=== PATIENT | female | born 1970 | race African-American/Black ===

== ENCOUNTER 2017-01-06 16:56 | Emergency (ER) | payer SELFPAY ==
[2017-01-06 17:27] VITALS: BP 180/120
[2017-01-06] MEDS ORDERED: BUTALB/ACETAMINOPHEN/CAFFEINE 1 TAB EACH PO ONE (18:04)
--- NOTE | 2017-01-06 18:06 | ER Document Report ---
ED Headache - General Chief Complaint: Headache >24 hrs old Stated Complaint: POSSIBLE MIGRAINE Notes: The patient is a 46-year-old female, past medical history hypertension, frequent headaches, CVA several years ago, presents with her usual right-sided dull headache with right eye pain. She does not take anything at home and usually the headaches resolve on their own. Today, the headache has not resolved. She denies head injury, numbness, tingling, nausea, vomiting, ear pain, fevers, neck stiffness or weakness. TRAVEL OUTSIDE OF THE [place] IN LAST 30 DAYS: No - Related Data Allergies/Adverse Reactions: lisinopril Allergy (Verified 01/06/17 17:20) Past Medical History - General Information source: Patient - Social History Smoking Status: Never Smoker Family History: Reviewed & Not Pertinent - Past Medical History Cardiac Medical History: Reports: Hx Hypertension Neurological Medical History: Reports: Hx Cerebrovascular Accident - 2012 Renal/ Medical History: Denies: Hx Peritoneal Dialysis Musculoskeltal Medical History: Reports Hx Arthritis, Reports Hx Fibromyalgia Psychiatric Medical History: Reports: Hx Anxiety, Hx Depression - Immunizations Immunizations up to date: No Hx Diphtheria, Pertussis, Tetanus Vaccination: No Review of Systems - Review of Systems Notes: REVIEW OF SYSTEMS: CONSTITUTIONAL: -fevers, -chills EENT: +right eye pain, -difficulty swallowing, -nasal congestion CARDIOVASCULAR:-chest pain, -syncope. RESPIRATORY: -cough, -SOB GASTROINTESTINAL: -abdominal pain, - nausea, -vomiting, -diarrhea GENITOURINARY: -dysuria, -hematuria MUSCULOSKELETAL: -back pain, -neck pain SKIN: -rash or skin lesions. HEMATOLOGIC: -easy bruising or bleeding. LYMPHATIC: -swollen, enlarged glands. NEUROLOGICAL: -altered mental status or loss of consciousness, +headache, - neurologic symptoms PSYCHIATRIC: -anxiety, -depression. ALL OTHER SYSTEMS REVIEWED AND NEGATIVE. Physical Exam - Vital signs Vitals: Temp Pulse Resp BP Pulse Ox 99.5 F 86 16 181/113 H 100 01/06/17 17:22 01/06/17 17:22 01/06/17 17:22 01/06/17 17:22 01/06/17 17:22 - Notes Notes: PHYSICAL EXAMINATION: GENERAL: Well-appearing, well-nourished and in no acute distress. HEAD: Atraumatic, normocephalic. EYES: Pupils equal round and reactive to light, extraocular movements intact, sclera anicteric, conjunctiva are normal. ENT: nares patent, oropharynx clear without exudates. Moist mucous membranes. NECK: Normal range of motion, supple without lymphadenopathy LUNGS: Breath sounds clear to auscultation bilaterally and equal. No wheezes rales or rhonchi. HEART: Regular rate and rhythm without murmurs ABDOMEN: Soft, nontender, normoactive bowel sounds. No guarding, no rebound. No masses appreciated. EXTREMITIES: Normal range of motion, no pitting or edema. No cyanosis. NEUROLOGICAL: Cranial nerves grossly intact. Normal speech, normal gait. Normal sensory, motor, and reflex exams. PSYCH: Normal mood, normal affect. SKIN: Warm, Dry, normal turgor, no rashes or lesions noted. Course - Re-evaluation Re-evalutation: Patient's headache is exactly the same as her prior ones. She has an appointment with her primary care physician in 2 weeks to be started on blood pressure medications and headache medications. After Fioricet, patient's headache has completely resolved. Given strict return precautions and she understands. - Vital Signs Vital signs: Temp Pulse Resp BP Pulse Ox 99.5 F 86 16 180/120 H 100 01/06/17 17:22 01/06/17 17:22 01/06/17 17:22 01/06/17 17:27 01/06/17 17:22 Discharge - Discharge Clinical Impression: Chronic headache Qualifiers: Headache type: unspecified Intractability: not intractable Qualified Code(s): R51 - Headache Hypertension Qualifiers: Hypertension type: unspecified secondary hypertension Qualified Code(s): I15.9 - Secondary hypertension, unspecified; I15 - Secondary hypertension Condition: Good Disposition: HOME, SELF-CARE Additional Instructions: HEADACHE: The physician does not feel that the headache you are experiencing has a serious underlying cause. Most headaches are due to emotional stress, with resultant muscle tension (tension headache). Occasionally, headaches are secondary to changes in the blood vessels of the scalp (vascular headache and migraine headache). Sometimes, a headache is the first symptom of another developing illness, such as a viral infection. You have no evidence of stroke, bleeding, meningitis, or other serious cause of your headache. The treatment of headaches varies with the severity and cause of the pain. Not all headaches need pain shots. In fact, there is evidence that using narcotics for headaches may make them worse in the long run. The physician will determine the therapy that's in your best interest. If you develop a fever, if the headache is different from any you've previously experienced, or if the headache progressively worsens, then call your physician at once or go to the emergency room. ORAL NARCOTIC MEDICATION: You have been given Fioricet for pain control. This medication is a narcotic. It's best taken with food, as nausea can result if taken on an empty stomach. Don't operate machinery or drive within six hours of taking this medication. Do not combine this medicine with alcohol, or with any medication which can cause sedation (such as cold tablets or sleeping pills) unless you get permission from the physician. Narcotics tend to cause constipation. If possible, drink plenty of fluids and eat a diet high in fiber and fruits. Please be aware that prescription narcotics also have the potential for abuse. People become addicted to these medications because of the general sense of wellbeing that they induce. This feeling along with a significant reduction in tension, anxiety, and aggression provides a stimulating seductive quality to these drugs. Once your pain is under control, we encourage you to discard your unused narcotics. FOLLOW-UP CARE: If you have been referred to a physician for follow-up care, call the physician s office for an appointment as you were instructed or within the next two days. If you experience worsening or a significant change in your symptoms, notify the physician immediately or return to the Emergency Department at any time for re-evaluation. HIGH BLOOD PRESSURE, NOT TREAT: When your blood pressure was taken today it was elevated. Today's reading was 181/120. We do not think you need to have your blood pressure treated today. Sometimes, stress or illness causes a temporary elevation of your blood pressure. We suggest that you get your blood pressure measured again during the next few days to see if this elevated blood pressure is more than a temporary abnormality. If your blood pressure is greater than 150/90 on each occasion, you must have treatment. Some simple things you can do to help are: If you have blood pressure medicine but aren't using it regularly, start taking it again. Get some aerobic exercise for at least 20 minutes on a daily basis. (See your doctor before beginning a new exercise program.) Eat a low-fat diet. Lose excess weight. Avoid salty foods and avoid adding salt to any of the foods you eat. Avoid diet pills, decongestants, "energizing" herbs, and other medicines that elevate blood pressure. If left untreated, hypertension greatly enhances your risk for developing heart disease and strokes. Please don't ignore this problem. FOLLOW-UP CARE: If you have been referred to a physician for follow-up care, call the physician s office for an appointment as you were instructed or within the next two days. If you experience worsening or a significant change in your symptoms, notify the physician immediately or return to the Emergency Department at any time for re-evaluation.
== END 2017-01-06 19:29 | disposition home or self-care (01) ==
LOC: ER 16:56
DX: R51 Headache (principal); I10 Essential (primary) hypertension; H57.11 Ocular pain, right eye; Z86.73 Personal history of transient ischemic attack (TIA), and cerebral infarction without residual deficits
CPT/HCPCS: 99283; J3490

== ENCOUNTER 2017-01-07 12:49 | Emergency (ER) | payer SELFPAY ==
[2017-01-07] MEDS ORDERED: TRAMADOL HCL 50 MG TABLET PO ONE (13:31)
[2017-01-07] MEDS ORDERED: TETRACAINE HCL 0.5% OPH SOLN 2 ML OD ONE (13:53)
--- NOTE | 2017-01-07 14:20 | ER Document Report ---
ED General - General Chief Complaint: Eye Injury Stated Complaint: LEFT EYE INJURY Mode of Arrival: Ambulatory Information source: Patient Notes: Patient is a 46 year old female with PMHX significant for HTN who presents with left eye redness and pain that started this morning after she was pulling her phone charge out of the wall and hit her in the eye. She states she has some associated intermittent blurred vision that resolves with blinking, excessive tearing, and associated headache but denies any dizziness, vision changes, FB sensation, drainage. She has not taken any medication for this. She does not wear contacts or glasses, she does not have an eye doctor. TRAVEL OUTSIDE OF THE [place] IN LAST 30 DAYS: No - Related Data Allergies/Adverse Reactions: lisinopril Allergy (Verified 01/06/17 17:20) Past Medical History - Social History Smoking Status: Never Smoker Chew tobacco use (# tins/day): No Frequency of alcohol use: None Drug Abuse: None Family History: Reviewed & Not Pertinent - Past Medical History Cardiac Medical History: Reports: Hx Hypertension Neurological Medical History: Reports: Hx Cerebrovascular Accident - 2012 Renal/ Medical History: Denies: Hx Peritoneal Dialysis Musculoskeltal Medical History: Reports Hx Arthritis, Reports Hx Fibromyalgia Psychiatric Medical History: Reports: Hx Anxiety, Hx Depression Surgical Hx: Negative - Immunizations Immunizations up to date: No Hx Diphtheria, Pertussis, Tetanus Vaccination: No Review of Systems - Review of Systems Constitutional: See HPI EENT: See HPI Cardiovascular: No symptoms reported Respiratory: No symptoms reported Gastrointestinal: No symptoms reported Genitourinary: No symptoms reported Female Genitourinary: No symptoms reported Musculoskeletal: No symptoms reported Skin: No symptoms reported Hematologic/Lymphatic: No symptoms reported Neurological/Psychological: No symptoms reported Physical Exam - Vital signs Vitals: Temp Pulse Resp BP Pulse Ox 98.2 F 87 16 153/113 H 100 01/07/17 12:51 01/07/17 12:51 01/07/17 12:51 01/07/17 12:51 01/07/17 12:51 Interpretation: Hypertensive - Notes Notes: PHYSICAL EXAM: CONSTITUTIONAL: Alert and oriented, well-appearing and in no acute distress. HENT: Normocephalic, atraumatic. Trachea midline. Uvula midline. Moist mucous membranes. EYES: Pupils equal round and reactive to light, EOM intact. R eye - Sclera anicteric, conjunctiva are normal. No entrapment. L eye - erythematous conjunctiva with evidence of FB or trauma. Fluorescein exam revealed no uptake of dye, no evidence of corneal abrasion or rust ring. NECK: supple without lymphadenopathy. ROM intact. HEART: Regular rate and rhythm without murmurs. LUNGS: CTAB and equal. No wheezes, rales or rhonchi. NEURO: Cranial nerves grossly intact. Normal sensory/motor exams. SKIN: Warm and dry. Normal turgor. No rashes or lesions noted. Course - Re-evaluation Re-evalutation: 01/07/17 14:18 Patient seen and examined. Visual acuity 20/40 L eye, 20/50 R eye, 20/40 both eyes. Right eye reveals conjunctival erythema without foreign body. Fluorescein exam revealed no FB or corneal abrasion. Will treat empirically with opthalmic abx solution. Advised to follow-up with eye doctor, return if symptoms worsen. Given PO pain medication here. At this time, will discharge with return precautions and follow-up recommendations. Verbal discharge instructions given at the bedside and opportunity for questions given. Medication warnings reviewed. Patient is in agreement with this plan and has verbalized understanding of return precautions and the need for primary care follow-up in the next 24-72 hours. 01/07/17 14:21 Repeat blood pressure 167/116 - discussed with patient who states she just saw her primary care physician for HTN yesterday and was told to increase metoprolol dosing which she is starting today. - Vital Signs Vital signs: Temp Pulse Resp BP Pulse Ox 98.2 F 87 16 153/113 H 100 01/07/17 12:51 01/07/17 12:51 01/07/17 12:51 01/07/17 12:51 01/07/17 12:51 Discharge - Discharge Clinical Impression: Conjunctival abrasion Qualifiers: Encounter type: initial encounter Laterality: left Qualified Code(s): S05.02XA - Injury of conjunctiva and corneal abrasion without foreign body, left eye, initial encounter Hypertension Qualifiers: Hypertension type: unspecified secondary hypertension Qualified Code(s): I15.9 - Secondary hypertension, unspecified Condition: Stable Disposition: HOME, SELF-CARE Additional Instructions: Follow-up with an eye doctor as needed. Contact information as been provided. You have been prescribed eye drop antibiotics. Place 1-2 drops in affected eye every 6 hours while awake for 5 days. Be sure to take your blood pressure medication as prescribed. Return immediately for any new or worsening symptoms. Follow-up with primary care provider, call tomorrow to make followup appointment. Prescriptions: Tramadol HCl [Ultram] 50 mg PO Q8HP PRN #10 tablet PRN Reason: Gentamicin Sulfate [Garamycin 0.3% Oph Soln 5 ml] 1 drop OS Q6H 5 Days Forms: Elevated Blood Pressure
[2017-01-07 14:22] VITALS: BP 167/116
== END 2017-01-07 14:30 | disposition home or self-care (01) ==
LOC: ER 12:49
DX: S05.02XA Injury of conjunctiva and corneal abrasion without foreign body, left eye, initial encounter (principal); W22.8XXA Striking against or struck by other objects, initial encounter; Y92.009 Unspecified place in unspecified non-institutional (private) residence as the place of occurrence of the external cause; I10 Essential (primary) hypertension; Z86.73 Personal history of transient ischemic attack (TIA), and cerebral infarction without residual deficits
CPT/HCPCS: 99283

== ENCOUNTER 2017-02-21 22:55 | Emergency (ER) | payer SELFPAY ==
[2017-02-22 00:22] LABS: ANION GAP 12 (5-19); BLOOD UREA NITROGEN 9 mg/dL (7-20); CALCIUM 9.4 mg/dL (8.4-10.2); CARBON DIOXIDE 27 mmol/L (22-30); CHLORIDE 103 mmol/L (98-107); GLUCOSE 81 mg/dL (75-110); POTASSIUM 3.5 mmol/L (3.6-5.0); SODIUM 141.5 mmol/L (137-145)
[2017-02-22] MEDS ORDERED: KETOROLAC TROMETHAMINE INJ/PF 30 MG/1 ML SDV IV ONE (00:59)
[2017-02-22] MEDS ORDERED: LIDOCAINE 5% (700 MG) TRANSDERMAL ADH..PATCH TP ONE (00:59)
--- NOTE | 2017-02-22 01:00 | ER Document Report ---
ED General - General Chief Complaint: Chest Pain Stated Complaint: CHEST PAIN Time Seen by Provider: 02/21/17 23:49 Notes: Patient is a 46-year-old female with a prior history of a CVA, hypertension who presents with 12 hours of left-sided chest pain. States the pain as a sharp, constant, stabbing pain. It is worsened by movement of the chest wall or left upper extremity. She has not tried anything to improve the symptoms. States she has had similar symptoms in the past related to musculoskeletal irritation of the chest wall. She denies any cardiac history, history of DVT or pulmonary embolus. She does not use estrogen. No history of aortic pathology or connective tissue disorders. She has not seen a primary care doctor regarding today's concerns. TRAVEL OUTSIDE OF THE [place] IN LAST 30 DAYS: No - Related Data Allergies/Adverse Reactions: lisinopril Allergy (Verified 01/06/17 17:20) Past Medical History - General Information source: Patient - Social History Smoking Status: Never Smoker Frequency of alcohol use: None Drug Abuse: None Lives with: Spouse/Significant other Family History: Reviewed & Not Pertinent - Past Medical History Cardiac Medical History: Reports: Hx Hypertension Neurological Medical History: Reports: Hx Cerebrovascular Accident - 2012 Renal/ Medical History: Denies: Hx Peritoneal Dialysis Musculoskeltal Medical History: Reports Hx Arthritis, Reports Hx Fibromyalgia Psychiatric Medical History: Reports: Hx Anxiety, Hx Depression - Immunizations Immunizations up to date: No Hx Diphtheria, Pertussis, Tetanus Vaccination: No Review of Systems - Review of Systems Notes: Constitutional: Negative for fever. HENT: Negative for sore throat. Eyes: Negative for visual changes. Cardiovascular: Positive for chest pain. Respiratory: Negative for shortness of breath. Gastrointestinal: Negative for abdominal pain, vomiting or diarrhea. Genitourinary: Negative for dysuria. Musculoskeletal: Negative for back pain. Skin: Negative for rash. Neurological: Negative for headaches, weakness or numbness. 10 point ROS negative except as marked above and in HPI. Physical Exam - Vital signs Vitals: Temp Pulse Resp BP Pulse Ox 98.0 F 93 16 173/126 H 100 02/21/17 23:09 02/21/17 23:09 02/21/17 23:09 02/21/17 23:09 02/21/17 23:09 Interpretation: Hypertensive Notes: PHYSICAL EXAMINATION: GENERAL: Well-appearing, well-nourished and in no acute distress. HEAD: Atraumatic, normocephalic. EYES: Pupils equal round and reactive to light, extraocular movements intact, sclera anicteric, conjunctiva are normal. ENT: nares patent, oropharynx clear without exudates. Moist mucous membranes. NECK: Normal range of motion, supple without lymphadenopathy LUNGS: Breath sounds clear to auscultation bilaterally and equal. No wheezes rales or rhonchi. HEART: Regular rate and rhythm without murmurs Chest wall: Pain on palpation of the left anterior and lateral chest wall ABDOMEN: Soft, nontender, normoactive bowel sounds. No guarding, no rebound. No masses appreciated. EXTREMITIES: Normal range of motion, no pitting or edema. No cyanosis. NEUROLOGICAL: No focal neurological deficits. Moves all extremities spontaneously and on command. PSYCH: Normal mood, normal affect. SKIN: Warm, Dry, normal turgor, no rashes or lesions noted. Course - Re-evaluation Re-evalutation: 02/22/17 00:57 Presentation of chest pain in an otherwise well appearing patient. Low clinical suspicion for ACS given clinical history, exam, EKG without ST elevations or depressions, and negative initial troponin. HEART score less than or equal to 3. PE also seems unlikely given clinical history, absence of tachycardia or dyspnea. Patient is PERC criteria negative. CXR without evidence of pneumothorax or pneumonia. No widened mediastinum. Aortic dissection also seems unlikely given history, symmetric pulses, CXR, and vitals. No indication for serial troponins given the patient's exam and history appear very clinically consistent with musculoskeletal chest pain, highly reproducible on exam and has been present for greater than 12 hours at time of initial assessment. HEART Score: History:0 EC Age:0 Risk Factors:2 Troponin:0 Total: 2 Overall assessment: Chest pain in a patient without evidence of cardiac or other serious etiology on workup today. I discussed with patient that, based on their age, risk factors and emergency department testing today, the likelihood that their symptoms are related to a heart attack is very low (estimated risk of heart attack or over the next 30 days of less than 1%). The patient demonstrates decision making capacity and has verbalized an understanding of these risks to me. Based on this, the patient has chosen to follow-up as an outpatient. Usual chest pain return precautions reviewed. The patient states understanding and agreement with this plan. - Vital Signs Vital signs: Temp Pulse Resp BP Pulse Ox 98.6 F 82 18 124/80 98 02/22/17 02:11 02/22/17 02:11 02/22/17 02:11 02/22/17 02:11 02/22/17 02:11 - Laboratory Result Diagrams: 02/22/17 00:00 Laboratory results interpreted by me: 02/22/17 00:00 Potassium 3.5 L - Diagnostic Test Radiology reviewed: Image reviewed, Reports reviewed Radiology results interpreted by me: 02/22/17 00:58 Chest x-ray: No acute infiltrate or pneumothorax - EKG Interpretation by Me Additional EKG results interpreted by me: 02/22/17 00:58 Normal sinus rhythm. Rate 95. No ST elevations or depressions. QTC is 448. Discharge - Discharge Clinical Impression: Chest pain Qualifiers: Chest pain type: intercostal pain Qualified Code(s): R07.82 - Intercostal pain Condition: Good Disposition: HOME, SELF-CARE Additional Instructions: You were seen today for chest pain. The exact cause of your pain is unclear. However, based on your cardiac enzyme testing, chest x-ray, and EKG it does not appear that it is from an immediately life-threatening cause at this time. Although your testing here is normal is critical that you follow-up with your primary care physician for continued evaluation of this chest pain. For your pain: Take ibuprofen 600 mg every 6 hours as needed for discomfort. You can also apply topical lidocaine which can be purchased [id number] to the affected area. You can also apply heat pack to the area. Please return to emergency department immediately if you have worsening of your chest pain, shortness of breath, vomiting, become unable to exert yourself due to pain or difficulty breathing, you pass out, or have any pain that radiates into your arms, jaw, or back. Please also return if you have any additional symptoms that are concerning to you. Forms: Return to Work
--- NOTE | 2017-02-22 01:23 | RADIOLOGY REPORT (SQ) ---
EXAM DESCRIPTION: CHEST SINGLE VIEW COMPLETED DATE/TIME: 02/22/2017 1:04 am REASON FOR STUDY: chest pain COMPARISON: 04/24/2016. EXAM PARAMETERS: NUMBER OF VIEWS: One view. TECHNIQUE: Single frontal radiographic view of the chest acquired. RADIATION DOSE: NA LIMITATIONS: None. FINDINGS: LUNGS AND PLEURA: No opacities, masses or pneumothorax. Minimal blunting of bilateral cos tophrenic angles. Azygos lobe. MEDIASTINUM AND HILAR STRUCTURES: No masses. Contour normal. HEART AND VASCULAR STRUCTURES: Heart normal in size. Normal vasculature. BONES: No acute findings. HARDWARE: None in the chest. OTHER: No other significant finding. IMPRESSION: NO ACUTE RADIOGRAPHIC FINDING IN THE CHEST. TECHNICAL DOCUMENTATION: JOB ID: [id number]
[2017-02-22 02:12] VITALS: BP 124/80
--- NOTE | 2017-02-22 21:08 | EKG REPORT ---
SEVERITY:- BORDERLINE ECG - SINUS RHYTHM LVH BY VOLTAGE : Confirmed by: Ximena Pepe 22-Feb-2017 21:08:21
== END 2017-02-22 02:14 | disposition home or self-care (01) ==
LOC: ER 22:55
DX: R07.82 Intercostal pain (principal); R07.9 Chest pain, unspecified; I10 Essential (primary) hypertension
CPT/HCPCS: 93005; 99285; 36415; 80048; 84484; 71010; 93010; J1885

== ENCOUNTER 2017-05-13 20:03 | Emergency (ER) | payer SELFPAY ==
[2017-05-13 23:49] LABS: ABSOLUTE BASOPHILS # (AUTO) 0.1 10^3/uL (0.0-0.2); ABSOLUTE EOSINOPHILS # (AUTO) 0.4 10^3/uL (0.0-0.6); ABSOLUTE MONOCYTES (AUTO) 0.5 10^3/uL (0.1-1.4); ABSOLUTE NEUT (AUTO) 5.6 10^3/uL (1.7-8.2); BASOPHILS % (AUTO) 0.9 % (0-2); EOSINOPHILS % (AUTO) 4.1 % (0-6); HEMATOCRIT 38.2 % (36.0-47.0); HEMOGLOBIN 12.6 g/dL (12.0-15.5); HGB HCT DIFFERENCE -0.4; LYMPHOCYTES % (AUTO) 23.7 % (13-45); MEAN CORPUSCULAR HEMOGLOBIN 29.7 pg (27.0-33.4); MEAN CORPUSCULAR HGB CONC 32.9 g/dL (32.0-36.0); MEAN CORPUSCULAR VOLUME 90 fl (80-97); MONOCYTES % (AUTO) 5.6 % (3-13); RED BLOOD COUNT 4.23 10^6/uL (3.72-5.28); RED CELL DISTRIBUTION WIDTH 13.8 % (11.5-14.0); SEGMENTED NEUTROPHILS % (AUTO) 65.7 % (42-78); WHITE BLOOD COUNT 8.6 10^3/uL (4.0-10.5)
[2017-05-13 23:58] LABS: ANION GAP 14 (5-19); BLOOD UREA NITROGEN 13 mg/dL (7-20); CALCIUM 10.3 mg/dL (8.4-10.2); CARBON DIOXIDE 23 mmol/L (22-30); CHLORIDE 104 mmol/L (98-107); CREATININE RESULT 0.99 mg/dL (0.52-1.25); GLUCOSE 95 mg/dL (75-110); POTASSIUM 4.2 mmol/L (3.6-5.0); SODIUM 140.9 mmol/L (137-145)
[2017-05-14] MEDS ORDERED: LIDOCAINE 5% OINTMENT 35.44 GM TP ONE (02:11)
--- NOTE | 2017-05-14 02:25 | ER Document Report ---
ED General - General Chief Complaint: Rectal Bleeding Stated Complaint: POSSIBLE HEMORRHOIDS Time Seen by Provider: 05/14/17 01:16 Mode of Arrival: Ambulatory Information source: Patient Notes: The patient is a 46-year-old female with a history of hypertension, panic attacks, fibromyalgia and a remote history of hemorrhoids who presents to the emergency room with symptomatic hemorrhoid. Medications: None (patient states she cannot afford them). Allergies: Lisinopril Primary CARE: None TRAVEL OUTSIDE OF THE [place] IN LAST 30 DAYS: No - HPI Onset: Last week Onset/Duration: Gradual Quality of pain: Dull Severity: Moderate Pain Level: 2 Associated symptoms: denies: Chest pain, Fever, Shortness of breath Exacerbated by: Denies Relieved by: Denies Similar symptoms previously: No Recently seen / treated by doctor: No - Related Data Allergies/Adverse Reactions: lisinopril Allergy (Verified 01/06/17 17:20) Past Medical History - General Information source: Patient - Social History Smoking Status: Never Smoker Cigarette use (# per day): No Chew tobacco use (# tins/day): No Frequency of alcohol use: None Drug Abuse: None Lives with: Family Family History: Reviewed & Not Pertinent Patient has suicidal ideation: No Patient has homicidal ideation: No - Past Medical History Cardiac Medical History: Reports: Hx Hypertension Neurological Medical History: Reports: Hx Cerebrovascular Accident - 2012 Renal/ Medical History: Denies: Hx Peritoneal Dialysis Musculoskeltal Medical History: Reports Hx Arthritis, Reports Hx Fibromyalgia Psychiatric Medical History: Reports: Hx Anxiety, Hx Depression - Immunizations Immunizations up to date: No Hx Diphtheria, Pertussis, Tetanus Vaccination: No Review of Systems - Review of Systems Constitutional: denies: Chills, Fever EENT: No symptoms reported Cardiovascular: No symptoms reported Respiratory: No symptoms reported - What he did have Gastrointestinal: See HPI Genitourinary: No symptoms reported Female Genitourinary: No symptoms reported Musculoskeletal: No symptoms reported Skin: No symptoms reported Hematologic/Lymphatic: No symptoms reported Neurological/Psychological: No symptoms reported Physical Exam - Vital signs Vitals: Temp Pulse Resp BP Pulse Ox 99 F 99 16 176/133 H 100 05/13/17 20:52 05/13/17 20:52 05/13/17 20:52 05/13/17 20:52 05/13/17 20:52 Notes: Physical exam: GENERAL: 46-year-old female, alert and oriented 3, no acute distress HEAD: Atraumatic, normocephalic. EYES: Pupils equal round and reactive to light, extraocular movements intact, sclera anicteric, conjunctiva are normal. ENT: TMs normal, nares patent, oropharynx clear without exudates. Moist mucous membranes. NECK: Normal range of motion, supple without lymphadenopathy LUNGS: Breath sounds clear to auscultation bilaterally and equal. No wheezes rales or rhonchi. HEART: Regular rate and rhythm without murmurs, rubs or gallops. ABDOMEN: Soft, normoactive bowel sounds. No tenderness to palpation. No guarding, no rebound. No masses appreciated. Rectal: Performed in the presence of contact lens manufacturer. Patient does have a tender hemorrhoid. There is no obvious bleeding. Rectal exam shows no obvious masses. EXTREMITIES: Normal range of motion, no pitting or edema. No clubbing or cyanosis. NEUROLOGICAL: Cranial nerves II through XII grossly intact. Normal speech, normal gait. PSYCH: Normal mood, normal affect. SKIN: Warm, Dry, normal turgor, no rashes or lesions noted. Course - Re-evaluation Re-evalutation: 05/14/17 02:21 I have given the patient the options: I have advised her to use hemorrhoid cream , viscous lidocaine and I will give her pain medicines. I have offered to incise the hemorrhoid to relieve the pressure (it looks like it will be thrombosed shortly). The patient prefers not to have an incision at this time. She has been through this before. She wishes to wait and will come back if it gets worse. In the meantime, I will give her the number for the surgical clinic. - Vital Signs Vital signs: Temp Pulse Resp BP Pulse Ox 99 F 88 18 185/117 H 100 05/13/17 20:52 05/14/17 01:42 05/14/17 01:42 05/14/17 01:42 05/14/17 01:42 - Laboratory Result Diagrams: 05/13/17 23:28 05/13/17 23:28 Laboratory results interpreted by me: 05/13/17 23:28 Calcium 10.3 H Discharge - Discharge Clinical Impression: Hemorrhoids Condition: Stable Disposition: HOME, SELF-CARE Instructions: Hemorrhoids ([facility]) Additional Instructions: Recommendations: Apply viscous lidocaine to the hemorrhoid 15 minutes before bowel movement. Take the stool softeners as prescribed. Take the pain medicine as needed. Sitz baths. Continue with the hemorrhoid cream. Call Dr. Coles in the surgical clinic: Tell them you are seen in the ER and will referred for evaluation of the hemorrhoids. Let them know you do not have insurance. You can always return to the emergency room if the hemorrhoids get worse. Prescriptions: Docusate Sodium [Colace 100 mg Capsule] 100 mg PO DAILY #30 capsule Oxycodone HCl/Acetaminophen [Percocet 5-325 mg Tablet] 1 - 2 tab PO ASDIR PRN # 25 tablet PRN Reason: Referrals: JUS COLES MD [ACTIVE STAFF] - Follow up as needed (This is the number for the surgical clinic: Tell them he was seen in the emergency room and the wanted to seen in the clinic for hemorrhoids. Tell them he did not have insurance.)
[2017-05-14] MEDS ORDERED: LIDOCAINE 5% OINTMENT 35.44 GM ONE (02:30)
[2017-05-14] MEDS ORDERED: OXYCODONE-ACETAMINOPHEN 5-325 MG TABLET PO ONE (03:05)
[2017-05-14 03:53] VITALS: BP 183/122
== END 2017-05-14 03:30 | disposition home or self-care (01) ==
LOC: ER 20:03
DX: K64.9 Unspecified hemorrhoids (principal); I10 Essential (primary) hypertension; Z88.8 Allergy status to other drugs, medicaments and biological substances
CPT/HCPCS: 36415; 80048; 85025; 99283; J3490

== ENCOUNTER → 2017-09-07 | Outpatient (CLI) | payer OTHER ==
--- NOTE | 2017-09-07 14:08 | WOMENS IMAGING REPORT ---
EXAM DESCRIPTION: BILAT SCREENING MAMMO W/CAD COMPLETED DATE/TIME: 09/07/2017 9:19 am REASON FOR STUDY: ROUTINE SCREENING; Z12.31 Z12.31 ENCNTR SCREEN MAMMOGRAM FOR MALIGNANT NEOPLASM O F MORALES COMPARISON: None available TECHNIQUE: Standard craniocaudal and mediolateral oblique views of each breast recorded using digita l acquisition. LIMITATIONS: None. FINDINGS: No masses, calcifications or architectural distortion. No areas of suspicion. Read with the assistance of CAD. .[facility] - R2 Cenova Version 1.3 .[facility] - R2 Cenova Version 1.3 .[facility] - R2 Cenova Version 2.4 .[facility] - R2 Cenova Version 2.4 .[facility] BEDS AT THE [facility] - R2 [place] Version 9.2 IMPRESSION: NORMAL MAMMOGRAM. BIRADS 1. BREAST DENSITY: b. There are scattered areas of fibroglandular density. BIRAD: 1 NEGATIVE RECOMMENDATION: ROUTINE SCREENING Please consider bilateral screening tomosynthesis in August 2018 COMMENT: The patient has been notified of the results by letter per MQSA requirements. Additional no tification policies are in place for contacting patient with suspicious or incomplete findings. Quality ID #[id number]: The [employer] recommends an annual screening mammogram for women aged 40 years or over. This facility utilizes a reminder system to ensure that all patients receive reminder letters, and/or direct phone calls for appointments. This includes reminders for routine scr eening mammograms, diagnostic mammograms, or other Breast Imaging Interventions when appropriate. Th is patient will be placed in the appropriate reminder system. The [employer] (ACR) has developed recommendations for screening MRI of the breast s in certain patient populations, to be used in conjunction with mammography. Breast MRI surveillanc e may be appropriate for women with more than 20% lifetime risk of developing breast cancer as deter mined by genetic testing, significant family history of the disease, or history of mantle radiation f or Hodgkins Disease. ACR Practice Guidelines 2008. TECHNICAL DOCUMENTATION: FINDING NUMBER: (1) ASSESSMENT: (1) JOB ID: [id number] [employer]- All Rights Reserved
== END ==
LOC: WI 08:59
DX: Z12.31 Encounter for screening mammogram for malignant neoplasm of breast (principal)
CPT/HCPCS: 77067; G0202

== ENCOUNTER 2017-10-03 20:54 | Emergency (ER) | payer SELFPAY ==
--- NOTE | 2017-10-03 21:37 | ER Document Report ---
ED Extremity Problem, Lower - General Stated Complaint: RIGHT KNEE PAIN Time Seen by Provider: 10/03/17 21:31 Notes: Patient is a 46 year old female that comes to the ED for chief complaint of pain behind her right knee with swelling. Symptoms have been worsening for the past couple of days. She denies injury. She states she has had intermittent problems with her knee in the past but no surgeries, injuries, or swelling. She denies smoking, recent travel or surgery, history of DVT. She denies any other symptoms including fever or chills. Past medical history of hypertension. TRAVEL OUTSIDE OF THE [place] IN LAST 30 DAYS: No - Related Data Allergies/Adverse Reactions: lisinopril Allergy (Verified 01/06/17 17:20) Past Medical History - General Information source: Patient - Social History Smoking Status: Never Smoker Frequency of alcohol use: None Drug Abuse: None Lives with: Family Family History: Reviewed & Not Pertinent - Past Medical History Cardiac Medical History: Reports: Hx Hypertension Neurological Medical History: Reports: Hx Cerebrovascular Accident - 2012 Renal/ Medical History: Denies: Hx Peritoneal Dialysis Musculoskeltal Medical History: Reports Hx Arthritis, Reports Hx Fibromyalgia Psychiatric Medical History: Reports: Hx Anxiety, Hx Depression Surgical Hx: Negative - Immunizations Immunizations up to date: No Hx Diphtheria, Pertussis, Tetanus Vaccination: No Review of Systems - Review of Systems Constitutional: No symptoms reported EENT: No symptoms reported Cardiovascular: See HPI Respiratory: No symptoms reported Gastrointestinal: No symptoms reported Genitourinary: No symptoms reported Female Genitourinary: No symptoms reported Musculoskeletal: See HPI Skin: No symptoms reported Hematologic/Lymphatic: No symptoms reported Neurological/Psychological: No symptoms reported Physical Exam - Vital signs Vitals: Pulse Resp BP Pulse Ox 87 16 171/116 H 99 10/03/17 22:45 10/03/17 22:45 10/03/17 22:45 10/03/17 22:45 Interpretation: Normal - General General appearance: Appears well, Alert In distress: None - HEENT Head: Normocephalic, Atraumatic Eyes: Normal Pupils: PERRL - Respiratory Respiratory status: No respiratory distress Chest status: Nontender Breath sounds: Normal Chest palpation: Normal - Cardiovascular Rhythm: Regular Heart sounds: Normal auscultation Murmur: No - Abdominal Inspection: Normal Distension: No distension Bowel sounds: Normal Tenderness: Nontender Organomegaly: No organomegaly - Back Back: Normal, Nontender - Extremities General upper extremity: Normal inspection, Nontender, Normal color, Normal ROM , Normal temperature General lower extremity: Other - There is some soft tissue swelling and questionable Montiel's cyst located behind the right knee, there is tenderness generally over the right knee which is mild, no erythema or abnormal heat to the area, normal range of motion, there is some cracking with range of motion of the knee. Normal lower extremity exam otherwise, normal distal sensation and capillary refill, normal dorsalis pedis. - Neurological Neuro grossly intact: Yes Cognition: Normal Orientation: AAOx4 [place] Coma Scale Eye Opening: Spontaneous Deep Coma Scale Verbal: Oriented Deep Coma Scale Motor: Obeys Commands [place] Coma Scale Total: 15 Speech: Normal Motor strength normal: LUE, RUE, LLE, RLE Sensory: Normal - Psychological Associated symptoms: Normal affect, Normal mood - Skin Skin Temperature: Warm Skin Moisture: Dry Skin Color: Normal Course - Re-evaluation Re-evalutation: Doppler is negative for clot or Montiel's cyst on preliminary results. Patient's examination is consistent with arthritic changes and pain secondary to degenerative changes. No severe effusion, no evidence of septic joint. Treating patient with anti-inflammatory, this will be started on a lower dose because of her hypertension, she states she has a close follow-up with her primary care within a few days for additional management of her blood pressure and for basic labs. She will also be referred to orthopedics, she has been orthopedics in the past for her knee but she needs a new one in this area. Discussed follow-up and return precautions. Patient states understanding and agreement. - Vital Signs Vital signs: Temp Pulse Resp BP Pulse Ox 87 16 171/116 H 99 10/03/17 22:45 10/03/17 22:45 10/03/17 22:45 10/03/17 22:45 Discharge - Discharge Clinical Impression: Right knee pain Qualifiers: Chronicity: acute Qualified Code(s): M25.561 - Pain in right knee Condition: Stable Disposition: HOME, SELF-CARE Additional Instructions: Your examination and x-ray showed degenerative changes in the knee (arthritis) but no effusion or concerning abnormalities are noted. Your ultrasound does not indicate any blood clot or concerning findings. Recommendation is to ice your knee 3-4 times a day for 10-15 minutes, take the naproxen anti-inflammatory with food as prescribed, and follow-up with orthopedics for additional management of your knee symptoms. Return the emergency department for any concerning or worsening symptoms including swelling or redness of the knee, fever, etc. Your blood pressure was elevated today, continue medications, follow-up in several days with your primary provider as planned for additional management of this. Prescriptions: Naproxen [Naprosyn 250 mg Tablet] 250 mg PO BID PRN #20 tablet PRN Reason: Referrals: JASON FARIAS MD [ACTIVE STAFF] - Follow up in 1 week
--- NOTE | 2017-10-03 22:14 | RADIOLOGY REPORT (SQ) ---
EXAM DESCRIPTION: KNEE RIGHT 4 VIEWS COMPLETED DATE/TIME: 10/03/2017 10:05 pm REASON FOR STUDY: right knee pain COMPARISON: 03/02/2016 NUMBER OF VIEWS: Four views. TECHNIQUE: AP, lateral, and both oblique radiographic images acquired of the right knee. LIMITATIONS: None. FINDINGS: MINERALIZATION: Normal. BONES: No acute fracture or dislocation. No worrisome bone lesions. Medial osteophytes. JOINT: No effusion. No chondrocalcinosis. OTHER: No other significant finding. IMPRESSION: Mild degenerative changes. TECHNICAL DOCUMENTATION: JOB ID: [id number] [employer]- All Rights Reserved
[2017-10-03] MEDS ORDERED: NAPROXEN 250 MG TABLET PO ONE (22:36)
--- NOTE | 2017-10-03 22:36 | RADIOLOGY REPORT (SQ) ---
EXAM DESCRIPTION: VENOUS UNILATERAL LOWER COMPLETED DATE/TIME: 10/03/2017 10:28 pm REASON FOR STUDY: swelling behind right knee COMPARISON: None. TECHNIQUE: Dynamic and static carver scale and color images acquired of the right leg venous system. S elected spectral images acquired with additional compression and augmentation maneuvers. The contrala teral common femoral vein and saphenofemoral junction were also imaged. Images stored on PACS. LIMITATIONS: None. FINDINGS: COMMON FEMORAL: Normal phasicity, compression and augmentation. No visualized echogenic ma terial on carver scale. No defects on color images. FEMORAL: Normal compression and augmentation. No visualized echogenic material on carver scale. No defe cts on color images. POPLITEAL: Normal compression, augmentation. No visualized echogenic material on carver scale. No defec ts on color images. CALF VESSELS: Normal compression, augmentation. No visualized echogenic material on carver scale. No de fects on color images. GSV and SSV: Normal compression, augmentation. No visualized echogenic material on carver scale. No def ects on color images. ANY DEEP VENOUS INSUFFICIENCY: Not evaluated. ANY EVIDENCE OF POPLITEAL CYST: No. OTHER: No other significant finding. CONTRALATERAL COMMON FEMORAL VEIN AND SAPHENOFEMORAL JUNCTION: Normal phasicity, compression and augmentation. No visualized echogenic material on carver scale. No de fects on color images. IMPRESSION: NO EVIDENCE DVT OR SVT IN THE RIGHT LEG. TECHNICAL DOCUMENTATION: JOB ID: [id number] [employer]- All Rights Reserved
[2017-10-03 22:49] VITALS: BP 171/116
== END 2017-10-03 22:49 | disposition home or self-care (01) ==
LOC: ER 20:54
DX: M25.561 Pain in right knee (principal); I10 Essential (primary) hypertension
CPT/HCPCS: 93971; 99284

== ENCOUNTER 2017-12-30 13:23 | Emergency (ER) | payer SELFPAY ==
[2017-12-30 13:30] VITALS: BP 145/105
--- NOTE | 2017-12-30 13:51 | ER Document Report ---
ED Extremity Problem, Lower - General Chief Complaint: Knee Pain Stated Complaint: KNEE PAIN Time Seen by Provider: 12/30/17 13:41 Mode of Arrival: Ambulatory Information source: Patient Notes: Patient is a 47-year-old female who presents to the ER today for right knee swelling and pain. Patient states that she was here recently, had an x-ray that showed a cyst of the back of the knee. She states that since that time she has had no injury, but that there is been increased swelling and pain when she tries to walk or bend the knee. She admits to popping when she tries to go up stairs. She has not seen anyone else for this. TRAVEL OUTSIDE OF THE [place] IN LAST 30 DAYS: No - Related Data Allergies/Adverse Reactions: lisinopril Allergy (Verified 12/30/17 13:24) Past Medical History - General Information source: Patient - Social History Smoking Status: Unknown if Ever Smoked Family History: Reviewed & Not Pertinent - Past Medical History Cardiac Medical History: Reports: Hx Hypertension Neurological Medical History: Reports: Hx Cerebrovascular Accident - 2012 Renal/ Medical History: Denies: Hx Peritoneal Dialysis Musculoskeltal Medical History: Reports Hx Arthritis, Reports Hx Fibromyalgia Psychiatric Medical History: Reports: Hx Anxiety, Hx Depression - Immunizations Immunizations up to date: No Hx Diphtheria, Pertussis, Tetanus Vaccination: No Review of Systems - Review of Systems Constitutional: No symptoms reported EENT: No symptoms reported Cardiovascular: No symptoms reported Respiratory: No symptoms reported Gastrointestinal: No symptoms reported Genitourinary: No symptoms reported Female Genitourinary: No symptoms reported Musculoskeletal: See HPI Skin: No symptoms reported Hematologic/Lymphatic: No symptoms reported Neurological/Psychological: No symptoms reported Physical Exam - Vital signs Vitals: Temp Pulse Resp BP Pulse Ox 98.3 F 93 13 145/105 H 100 12/30/17 13:26 12/30/17 13:26 12/30/17 13:26 12/30/17 13:26 12/30/17 13:26 - Notes Notes: PHYSICAL EXAMINATION: GENERAL: Well-appearing and in no acute distress. HEAD: Atraumatic, normocephalic. EYES: Pupils equal round and reactive to light, extraocular movements intact, sclera anicteric, conjunctiva are normal. NECK: Normal range of motion, supple without lymphadenopathy LUNGS: CTAB and equal. No wheezes rales or rhonchi. HEART: Regular rate and rhythm without murmurs EXTREMITIES: Normal range of motion, pain with anterior drawer testing, varus and valgus stressing of the right knee, right knee with edema to the anterior portion, no Montiel's cyst noted, no pitting edema. No cyanosis. NEUROLOGICAL: Cranial nerves grossly intact. Normal sensory/motor exams. PSYCH: Normal mood, normal affect. SKIN: Warm, Dry, normal turgor, no rashes or lesions noted Course - Re-evaluation Re-evalutation: 12/30/17 14:56 Patient was placed in a knee immobilizer brace here, given orthopedic information for follow-up for probable MRI as I do believe she has an internal knee injury. Patient is in agreement with this plan. - Vital Signs Vital signs: Temp Pulse Resp BP Pulse Ox 98.3 F 93 13 145/105 H 100 12/30/17 13:26 12/30/17 13:26 12/30/17 13:26 12/30/17 13:26 12/30/17 13:26 Discharge - Discharge Clinical Impression: Right knee pain Qualifiers: Chronicity: acute Qualified Code(s): M25.561 - Pain in right knee Condition: Stable Disposition: HOME, SELF-CARE Instructions: Suspected Internal Knee Injury ([facility]) Additional Instructions: Return immediately for any new or worsening symptoms. Follow up with orthopedic doctor call tomorrow to make followup appointment. Prescriptions: Ibuprofen [Motrin 800 mg Tablet] 800 mg PO Q8H PRN #30 tab PRN Reason: Referrals: JASON FARIAS MD [ACTIVE STAFF] - Follow up as needed
== END 2017-12-30 13:52 | disposition home or self-care (01) ==
LOC: ER 13:23
DX: M25.561 Pain in right knee (principal); R60.0 Localized edema; I10 Essential (primary) hypertension
CPT/HCPCS: 99283; L1830

== ENCOUNTER 2018-02-06 23:38 | Emergency (ER) | payer OTHER ==
[2018-02-07] MEDS ORDERED: ACETAMINOPHEN 325 MG TABLET PO ONE (01:49)
[2018-02-07] MEDS ORDERED: NAPROXEN 250 MG TABLET PO ONE (01:49)
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
[2018-02-07 02:07] VITALS: BP 133/103
== END 2018-02-07 02:08 | disposition home or self-care (01) ==
LOC: ER 23:38
DX: M79.1 Myalgia (principal); V49.40XA Driver injured in collision with unspecified motor vehicles in traffic accident, initial encounter; I10 Essential (primary) hypertension; Z86.73 Personal history of transient ischemic attack (TIA), and cerebral infarction without residual deficits
CPT/HCPCS: 99283

== ENCOUNTER 2018-02-07 21:31 | Emergency (ER) | payer OTHER ==
[2018-02-07 22:19] VITALS: BP 131/91
[2018-02-08] MEDS ORDERED: KETOROLAC TROMETHAMINE INJ/PF 30 MG/1 ML SDV IM ONE (01:05)
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
== END 2018-02-08 02:38 | disposition home or self-care (01) ==
LOC: ER 21:31
DX: S16.1XXA Strain of muscle, fascia and tendon at neck level, initial encounter (principal); S39.012A Strain of muscle, fascia and tendon of lower back, initial encounter; S40.012A Contusion of left shoulder, initial encounter; S80.02XA Contusion of left knee, initial encounter; M25.512 Pain in left shoulder; M25.562 Pain in left knee; M54.2 Cervicalgia; R51 Headache; V43.52XA Car driver injured in collision with other type car in traffic accident, initial encounter; Z88.8 Allergy status to other drugs, medicaments and biological substances; I10 Essential (primary) hypertension; R00.0 Tachycardia, unspecified
CPT/HCPCS: 99283; 73562; 72110; 73030; 72125; J1885

== ENCOUNTER 2018-06-12 19:17 | Emergency (ER) | payer OTHER ==
[2018-06-12] MEDS ORDERED: ONDANSETRON 4 MG TAB.RAPDIS PO ONE (21:17)
[2018-06-12] MEDS ORDERED: ACETAMINOPHEN 325 MG TABLET PO ONE (21:17)
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
[2018-06-12] MEDS ORDERED: ONDANSETRON 4 MG TAB.RAPDIS ONE (21:27)
[2018-06-12] MEDS ORDERED: ACETAMINOPHEN 325 MG TABLET ONE (21:27)
[2018-06-12 22:29] LABS: ABSOLUTE BASOPHILS # (AUTO) 0.1 10^3/uL (0.0-0.2); ABSOLUTE EOSINOPHILS # (AUTO) 0.4 10^3/uL (0.0-0.6); ABSOLUTE LYMPHOCYTES (AUTO) 2.8 10^3/uL (0.5-4.7); ABSOLUTE MONOCYTES (AUTO) 0.5 10^3/uL (0.1-1.4); ABSOLUTE NEUT (AUTO) 4.6 10^3/uL (1.7-8.2); HEMOGLOBIN 11.6 g/dL (12.0-15.5); MEAN CORPUSCULAR HEMOGLOBIN 29.2 pg (27.0-33.4); MEAN CORPUSCULAR VOLUME 88 fl (80-97); MONOCYTES % (AUTO) 5.9 % (3-13); PLATELET COUNT 328 10^3/uL (150-450); RED BLOOD COUNT 3.96 10^6/uL (3.72-5.28); RED CELL DISTRIBUTION WIDTH 14.4 % (11.5-14.0); SEGMENTED NEUTROPHILS % (AUTO) 55.1 % (42-78); TOTAL CELLS COUNTED % (AUTO) 100 %; WHITE BLOOD COUNT 8.4 10^3/uL (4.0-10.5)
[2018-06-12 22:46] LABS: ALANINE AMINOTRANSFERASE 22 U/L (9-52); ALBUMIN 4.3 g/dL (3.5-5.0); ALKALINE PHOSPHATASE 68 U/L (38-126); ANION GAP 9 (5-19); ASPARTATE AMINO TRANSFERASE 31 U/L (14-36); BILIRUBIN,DIRECT 0.5 mg/dL (0.0-0.4); BILIRUBIN,TOTAL 0.7 mg/dL (0.2-1.3); BLOOD UREA NITROGEN 11 mg/dL (7-20); CALCIUM 9.4 mg/dL (8.4-10.2); CARBON DIOXIDE 27 mmol/L (22-30); CHLORIDE 103 mmol/L (98-107); GLUCOSE 87 mg/dL (75-110); POTASSIUM 3.9 mmol/L (3.6-5.0); SODIUM 138.9 mmol/L (137-145); TOTAL PROTEIN 8.2 g/dL (6.3-8.2)
[2018-06-13] MEDS ORDERED: KETOROLAC TROMETHAMINE INJ/PF 30 MG/1 ML SDV IM ONE (01:08)
[2018-06-13] MEDS ORDERED: HYDROCODONE/ACETAMINOPHEN 5-325 MG (6 TAB/ER DISP) PO PRN (01:08)
--- NOTE | 2018-06-13 01:23 | ER Document Report ---
ED General - General Chief Complaint: Headache, Worst Ever Stated Complaint: WEEKNESS,PAIN ALL OVER Time Seen by Provider: 06/12/18 21:16 Mode of Arrival: Wheelchair Notes: Patient is 47-year-old female presents with complaint of pain throughout her shoulders, neck, head, back. Patient says that she has chronic knee pain. She says last few days reduce pain and worse. Tonight became worse and she felt her blood pressure go up and she started to develop a headache. Triage note says that the headache was severe and where she is ever had. Patient says this is not true. Patient says that the headache was gradual in onset. It was not maximal in onset. They gave her Tylenol in triage which helped relieve her pain. She says that she now just has her knee pain. Patient herself thinks that her knee pain because her blood pressure to go up which caused her headache. She said this has happened several times in the past. She denies any fevers. No trauma. No vomiting. She says she is not an orthopedist about her knees because she does not have insurance and cannot afford it. She is on metoprolol and hydrochlorothiazide for high blood pressure. She has been taking this. Denies ever having any chest pain during this episode. Patient has history of fibromyalgia. TRAVEL OUTSIDE OF THE [place] IN LAST 30 DAYS: No - Related Data Allergies/Adverse Reactions: lisinopril Allergy (Verified 06/12/18 19:42) Past Medical History - General Information source: Patient - Social History Smoking Status: Never Smoker Chew tobacco use (# tins/day): No Drug Abuse: None Family History: Reviewed & Not Pertinent Patient has suicidal ideation: No Patient has homicidal ideation: No - Past Medical History Cardiac Medical History: Reports: Hx Hypertension Neurological Medical History: Reports: Hx Cerebrovascular Accident - 2013, Hx Migraine Renal/ Medical History: Denies: Hx Peritoneal Dialysis Musculoskeletal Medical History: Reports Hx Arthritis, Reports Hx Fibromyalgia Psychiatric Medical History: Reports: Hx Anxiety, Hx Depression - Immunizations Immunizations up to date: No Hx Diphtheria, Pertussis, Tetanus Vaccination: No Review of Systems - Review of Systems Notes: My Normal Review Basic REVIEW OF SYSTEMS: CONSTITUTIONAL : Denies fever, chills, or sweats. Denies recent illness. EENT: Denies eye, ear, throat, or mouth pain or symptoms. Denies nasal or sinus congestion. CARDIOVASCULAR: Denies chest pain. RESPIRATORY: Denies cough, cold, or chest congestion. Denies shortness of breath, difficulty breathing, or wheezing. GASTROINTESTINAL: Denies abdominal pain. Denies nausea, vomiting, or diarrhea. MUSCULOSKELETAL: Some neck pain, back pain, and shoulder pain. Chronic knee pain. SKIN: Denies rash or skin lesions. NEUROLOGICAL: Denies altered mental status or loss of consciousness. Has a headache. Denies weakness or paralysis or loss of use of either side. Denies problems with gait or speech. Denies sensory or motor loss. ALL OTHER SYSTEMS REVIEWED AND NEGATIVE. Physical Exam - Vital signs Vitals: Temp Pulse Resp BP Pulse Ox 98.0 F 95 20 143/108 H 100 06/12/18 20:37 06/12/18 20:37 06/12/18 20:37 06/12/18 20:37 06/12/18 20:37 - Notes Notes: General Appearance: Well nourished, alert, cooperative, no acute distress, mild obvious discomfort. Well appearing. Vitals: reviewed, See vital signs table. Head: no swelling or tenderness to the head Eyes: PERRL, EOMI, Conjuctiva clear Mouth: No decreasd moisture Throat: No tonsillar inflammation, No airway obstruction, No lymphadenopathy Neck: Supple, some old tenderness to palpation of cervical paraspinal musculature. Lungs: No wheezing, No rales, No rhonci, No accessory muscle use, good air exchange bilaterally. Heart: Normal rate, Regular rythm, No murmur, no rub Abdomen: Normal BS, soft, No rigidity, No abdominal tenderness, No guarding, no rebound, no abdominal masses, no organomegaly Extremities: strength 5/5 in all extremities, good pulses in all extremities, pain when extending right knee. No significant swelling to the right knee. Mild pain with extension of left knee. Skin: warm, dry, appropriate color, no rash Neuro: speech clear, oriented x 3, normal affect, responds appropriately to questions. Cranial nerves II through XII are intact. Distal sensation intact. Course - Vital Signs Vital signs: Temp Pulse Resp BP Pulse Ox 97.6 F 91 18 154/114 H 100 06/13/18 02:02 06/13/18 02:02 06/13/18 02:02 06/13/18 02:02 06/13/18 02:02 - Laboratory Result Diagrams: 06/12/18 22:14 06/12/18 22:14 Laboratory results interpreted by me: 06/12/18 06/12/18 22:14 22:14 Hgb 11.6 L Hct 35.0 L RDW 14.4 H Est GFR (Non-Af Amer) 57 L Direct Bilirubin 0.5 H Discharge - Discharge Clinical Impression: Headache Qualifiers: Headache type: unspecified Headache chronicity pattern: acute headache Intractability: not intractable Qualified Code(s): R51 - Headache Knee pain Qualifiers: Chronicity: chronic Laterality: bilateral Qualified Code(s): M25.561 - Pain in right knee Hypertension Qualifiers: Hypertension type: unspecified Qualified Code(s): I10 - Essential (primary) hypertension Condition: Good Disposition: HOME, SELF-CARE Additional Instructions: Please take your medications as prescribed. please return to the ER immediately if you develop fevers, vomiting, severe headache, chest pain, or shortness of breath. Please be aware that [facility] does have Tylenol (acetaminophen) in it. Please make sure you do not take more than 4000 mg of acetaminophen a day. Do not drive or care for children after you have taken this medication they will make you sleepy and sometimes impair judgment.
[2018-06-13 02:03] VITALS: BP 154/114
--- NOTE | 2018-06-14 15:20 | EKG REPORT ---
SEVERITY:- BORDERLINE ECG - SINUS RHYTHM LVH BY VOLTAGE : Confirmed by: Kimberlee Watts MD 14-Jun-2018 15:19:35
== END 2018-06-13 02:03 | disposition home or self-care (01) ==
LOC: ER 19:17
DX: R51 Headache (principal); R53.83 Other fatigue; M25.561 Pain in right knee; I10 Essential (primary) hypertension; Z86.73 Personal history of transient ischemic attack (TIA), and cerebral infarction without residual deficits
CPT/HCPCS: 93005; 99284; 96372; 36415; 84703; 85025; 80053; 93010; S0119; J1885

== ENCOUNTER 2018-06-14 18:45 | Emergency (ER) | payer SELFPAY ==
[2018-06-14 19:03] VITALS: BP 142/103
[2018-06-14] MEDS ORDERED: ONDANSETRON 4 MG TAB.RAPDIS PO ONE (19:30)
[2018-06-14] MEDS ORDERED: OXYCODONE-ACETAMINOPHEN 5-325 MG TABLET PO ONE (19:30)
--- NOTE | 2018-06-14 19:36 | ER Document Report ---
ED General - General Chief Complaint: Dizziness Stated Complaint: DIZZY, HEADACHE, KNEE PAIN Time Seen by Provider: 06/14/18 19:09 Mode of Arrival: Ambulatory Information source: Patient Notes: Chief complaint: Shoulder pain History of complain:( obtained from----patient) 47 years old female was seen here 3 days ago, returned saying that hydrocodone is not helping. Saying her right shoulder and right arm is very painful and difficult to raising it about shoulder level. And also this is giving her on and off headache and discomfort. Denies any fever chills or other constitutional symptoms. 4 Onset: As above Duration: Gradual Severity: Moderate Quality: Sharp Context: Unknown history of fibromyalgia Exacerbating factor and relieving factors: Movement of the shoulder REVIEW OF SYSTEMS: CONSTITUTIONAL : Denies fever, chills, or sweats. Denies recent illness. EENT: Denies eye, ear, throat, or mouth pain or symptoms. Denies nasal or sinus congestion or discharge. Denies throat, tongue, or mouth swelling or difficulty swallowing. CARDIOVASCULAR: Denies chest pain. Denies palpitations or racing or irregular heart beat. Denies ankle edema. RESPIRATORY: Denies cough, cold, or chest congestion. Denies shortness of breath, difficulty breathing, or wheezing. GASTROINTESTINAL: Denies distention. Denies nausea, vomiting, or diarrhea. Denies blood in vomitus, stools, or per rectum. Denies black, tarry stools. Denies constipation. GENITOURINARY: Denies difficulty urinating, painful urination, burning, frequency, blood in urine, or discharge. FEMALE GENITOURINARY: Denies vaginal bleeding, heavy or abnormal periods, irregular periods. Denies vaginal discharge or odor. MUSCULOSKELETAL: Denies back or neck pain or stiffness. Denies joint pain or swelling. SKIN: Denies rash, lesions or sores. HEMATOLOGIC : Denies easy bruising or bleeding. LYMPHATIC: Denies swollen, enlarged glands. NEUROLOGICAL: Denies confusion or altered mental status. Denies passing out or loss of consciousness. Denies dizziness or lightheadedness. Denies headache. Denies weakness or paralysis or loss of use of either side. Denies problems with gait or speech. Denies sensory loss, numbness, or tingling. Denies seizures. PSYCHIATRIC: Denies anxiety or stress. Denies depression, suicidal ideation, or homicidal ideation. ALL OTHER SYSTEMS REVIEWED AND NEGATIVE. PHYSICAL EXAMINATION: GENERAL: Well-appearing, well-nourished and in no acute distress. Not appear to be in any acute distress HEAD: Atraumatic, normocephalic. EYES: Pupils equal round and reactive to light, extraocular movements intact, conjunctiva are normal. ENT: Nares patent, oropharynx clear without exudates. Moist mucous membranes. NECK: Normal range of motion, supple without lymphadenopathy LUNGS: Breath sounds clear to auscultation bilaterally and equal. No wheezes rales or rhonchi. HEART: Regular rate and rhythm without murmurs ABDOMEN: Soft, nontender, nondistended abdomen. No guarding, no rebound. No masses appreciated. Examination of genitals-deferred Musculoskeletal: Normal range of motion, no pitting or edema. No cyanosis. Except right shoulder is tender over the supraspinatus as well as shoulder region, abduction is limited to 30. Neurovascular function within normal limit NEUROLOGICAL: Cranial nerves grossly intact. Normal speech, normal gait. Normal sensory, motor exams PSYCH: Normal mood, normal affect. SKIN: Warm, Dry, normal turgor, no rashes or lesions noted. Dictation was performed using [employer] voice recognition software TRAVEL OUTSIDE OF THE [place] IN LAST 30 DAYS: No - HPI Notes: Dictated - Related Data Allergies/Adverse Reactions: lisinopril Allergy (Verified 06/14/18 18:47) Past Medical History - Social History Smoking Status: Unknown if Ever Smoked Cigarette use (# per day): No Chew tobacco use (# tins/day): No Frequency of alcohol use: Rare Drug Abuse: None Lives with: Family Family History: Reviewed & Not Pertinent Patient has suicidal ideation: No Patient has homicidal ideation: No - Past Medical History Cardiac Medical History: Reports: Hx Hypertension Neurological Medical History: Reports: Hx Cerebrovascular Accident - 2013, Hx Migraine Renal/ Medical History: Denies: Hx Peritoneal Dialysis Musculoskeletal Medical History: Reports Hx Arthritis, Reports Hx Fibromyalgia Psychiatric Medical History: Reports: Hx Anxiety, Hx Depression - Immunizations Immunizations up to date: No Hx Diphtheria, Pertussis, Tetanus Vaccination: No Review of Systems - Review of Systems Notes: Dictated Physical Exam - Vital signs Vitals: Temp Pulse Resp BP Pulse Ox 98.5 F 100 18 142/103 H 97 06/14/18 19:02 06/14/18 19:02 06/14/18 19:02 06/14/18 19:02 06/14/18 19:02 - Notes Notes: Dictated Course - Vital Signs Vital signs: Temp Pulse Resp BP Pulse Ox 98.5 F 100 18 142/103 H 97 06/14/18 19:02 06/14/18 19:02 06/14/18 19:02 06/14/18 19:02 06/14/18 19:02 Discharge - Discharge Clinical Impression: Shoulder sprain Qualifiers: Encounter type: initial encounter Shoulder sprain type: rotator cuff capsule Laterality: right Qualified Code(s): S43.421A - Sprain of right rotator cuff capsule, initial encounter Condition: Fair Disposition: HOME, SELF-CARE Instructions: Sprain ([facility]) Prescriptions: Ondansetron [Zofran Odt 4 mg Tablet] 1 - 2 tab PO Q4HP PRN #20 tab.rapdis PRN Reason: Oxycodone HCl/Acetaminophen [Percocet 5-325 mg Tablet] 1 tab PO ASDIR PRN #15 tab PRN Reason:
== END 2018-06-14 19:35 | disposition home or self-care (01) ==
LOC: ER 18:45
DX: S43.421A Sprain of right rotator cuff capsule, initial encounter (principal); X58.XXXA Exposure to other specified factors, initial encounter; M25.511 Pain in right shoulder; M79.601 Pain in right arm; I10 Essential (primary) hypertension; R51 Headache; Z88.8 Allergy status to other drugs, medicaments and biological substances
CPT/HCPCS: 99282

== ENCOUNTER 2018-06-22 00:40 | Emergency (ER) | payer SELFPAY ==
[2018-06-22] MEDS ORDERED: KETOROLAC TROMETHAMINE 60 MG/2 ML SDV IM ONE (03:09)
--- NOTE | 2018-06-22 03:17 | ER Document Report ---
HPI - HPI Pain Level: 5 Notes: Patient is a 47-year-old female who presents to the ED complaining of right anterior shoulder pain and right medial knee pain over the last several days. Patient does not recall any injury. Patient states that she does have soreness associated that does not radiate. She has not had any surgeries to these joints. Patient does have a history of fibromyalgia and chronic pain. Patient states that her right knee feels as though it may give out at times. No other concerns or complaints. Denies any headache, fever, URI, sore throat, chest pain, palpitations, syncope, cough, shortness of breath, wheeze, dyspnea, abdominal pain, nausea/vomiting/diarrhea, urinary retention, dysuria, hematuria , back pain, loss of control of bowel or bladder, numbness/tingling, saddle anesthesia, muscle paralysis/weakness, or rash. - ROS Systems Reviewed and Negative: Yes All other systems reviewed and negative - CONSTITUTIONAL Constitutional: DENIES: Fever, Chills - EENT EENT: DENIES: Sore Throat, Ear Pain, Eye problems - NEURO Neurology: DENIES: Headache - CARDIOVASCULAR Cardiovascular: DENIES: Chest pain - RESPIRATORY Respiratory: DENIES: Trouble Breathing, Coughing - REPRODUCTIVE Reproductive: DENIES: : - MUSCULOSKELETAL Musculoskeletal: REPORTS: Extremity pain - rt knee Past Medical History - Social History Smoking Status: Unknown if Ever Smoked Chew tobacco use (# tins/day): No Frequency of alcohol use: None Drug Abuse: None Family History: Reviewed & Not Pertinent Patient has suicidal ideation: No Patient has homicidal ideation: No - Past Medical History Cardiac Medical History: Reports: Hx Hypertension Neurological Medical History: Reports: Hx Cerebrovascular Accident - 2013, Hx Migraine Renal/ Medical History: Denies: Hx Peritoneal Dialysis Musculoskeletal Medical History: Reports Hx Arthritis, Reports Hx Fibromyalgia Psychiatric Medical History: Reports: Hx Anxiety, Hx Depression - Immunizations Immunizations up to date: No Hx Diphtheria, Pertussis, Tetanus Vaccination: No Vertical Provider Document - CONSTITUTIONAL Agree With Documented VS: Yes Notes: PHYSICAL EXAMINATION: GENERAL: Well-appearing, well-nourished and in no acute distress. NECK: Normal range of motion, supple without lymphadenopathy. Non-tender. Spurling negative. No rigidity/meningismus. LUNGS: Breath sounds clear to auscultation bilaterally and equal. No wheezes rales or rhonchi. HEART: Regular rate and rhythm without murmurs, rubs, gallops. Musculoskeletal: Rt shoulder: FROM to passive/active. Strength 5+/5. Neg speed test. No crepitus. No erythema or warmth. No deformity or ecchymosis. RC intact 5+/5 strength. No bony tenderness. Rt knee: No obvious swelling, ecchymosis, effusion, or deformity. FROM to passive/active and flexion >90 w/o difficulty or tenderness. Strength 5+/5. N/V intact distal. + mild medial joint line tenderness. Ligamentous grossly stable , limited exam with larger leg size. Juan J grossly negative. Patellar grind negative. No calf tenderness. Extremities: No cyanosis, clubbing, or edema b/l. Peripheral pulses 2+. Capillary refill less than 3 seconds. NEUROLOGICAL: Normal speech, normal gait. Normal sensory, motor exams PSYCH: Normal mood, normal affect. SKIN: Warm, Dry, normal turgor, no rashes or lesions noted. - INFECTION CONTROL TRAVEL OUTSIDE OF THE [place] IN LAST 30 DAYS: No Course - Re-evaluation Re-evalutation: 06/22/18 03:11 Patient is an afebrile, well-hydrated, 55-year-old female who presents to the ED with right anterior shoulder pain and right medial knee pain which I suspect to be inflammatory. Vitals are acceptable without any significant tachycardia, tachypnea, or hypoxia. PE is otherwise unremarkable for any neurovascular compromise, obvious tendon/ligament rupture, obvious fracture/dislocation, septic joint. Toradol given IM. Patient is nontoxic-appearing. Patient is able to ambulate and weight-bear without any difficulties 1 9. No other labs or imaging warranted at this time based on H&P. Rx for steroid taper. Conservative measures otherwise for symptoms. Recheck with your PCM in 3-5 days. Consider consult orthopedics. Return to the ED with any worsening/ concerning symptoms otherwise as reviewed in discharge. Patient is in agreement. - Vital Signs Vital signs: Temp Pulse Resp BP Pulse Ox 97.7 F 67 18 143/104 H 96 06/22/18 01:09 06/22/18 01:09 06/22/18 01:09 06/22/18 01:09 06/22/18 01:09 Discharge - Discharge Clinical Impression: Right shoulder pain Qualifiers: Chronicity: acute Qualified Code(s): M25.511 - Pain in right shoulder Right knee pain Qualifiers: Chronicity: chronic Qualified Code(s): M25.561 - Pain in right knee; G89.29 - Other chronic pain; G89.29 - Other chronic pain Condition: Stable Disposition: HOME, SELF-CARE Instructions: Ice & Elevation ([facility]) Additional Instructions: Rest, Ice, Compression, Elevation Tylenol/ibuprofen as needed Light stretches daily Strength exercises as able Moist heat and massage may help F/u with your PCP in 3-5 days for a recheck Consider consult(s) with Orthopedics/physical therapy for ongoing/worsening symptoms Return to the ED with any worsening symptoms and/or development of fever, headache, chest pain, palpitations, syncope, shortness of breath, trouble breathing, abdominal pain, n/v/d, muscle weakness/paralysis, numbness/tingling, swelling, redness, or other worsening symptoms that are concerning to you. Prescriptions: Prednisone 20 mg PO ASDIR #18 tablet Forms: Elevated Blood Pressure Referrals: [facility] [Provider Group] - Follow up as needed
[2018-06-22 03:47] VITALS: BP 135/91
== END 2018-06-22 03:47 | disposition home or self-care (01) ==
LOC: ER 00:40
DX: M25.561 Pain in right knee (principal); M25.511 Pain in right shoulder; G89.29 Other chronic pain; I10 Essential (primary) hypertension; Z86.73 Personal history of transient ischemic attack (TIA), and cerebral infarction without residual deficits
CPT/HCPCS: 99283; 96372; J1885

== ENCOUNTER 2018-08-06 21:34 | Emergency (ER) | payer SELFPAY ==
[2018-08-06] MEDS ORDERED: LIDOCAINE 5% (700 MG) TRANSDERMAL ADH..PATCH TP ONE (23:39)
--- NOTE | 2018-08-06 23:47 | ER Document Report ---
ED General - General Chief Complaint: Shoulder Pain Stated Complaint: RIGHT SHOULDER/KNEE PAIN Time Seen by Provider: 08/06/18 22:25 Notes: Patient is a 47-year-old female who presents to the emergency department with her right knee pain and right shoulder pain. Her right knee pain has been bothering her for the past year, but for the past couple days she has been having a hard time putting her knee straight. She has been walking with a limp. She has difficulty straightening her leg. Her right shoulder pain has been bothering her for the past 2 months, but is getting worse. When she reaches back she has a sharp pain in her shoulder. Medical history includes hypertension, CVA, atrial fibrillation, fibromyalgia, and chronic pain syndrome. She does not currently take medications for pain. She has a family history of arthritis. She denies fever. TRAVEL OUTSIDE OF THE [place] IN LAST 30 DAYS: No - Related Data Allergies/Adverse Reactions: lisinopril Allergy (Verified 08/06/18 21:35) Past Medical History - General Information source: Patient - Social History Smoking Status: Former Smoker Drug Abuse: None Family History: Reviewed & Not Pertinent - Past Medical History Cardiac Medical History: Reports: Hx Hypertension Neurological Medical History: Reports: Hx Cerebrovascular Accident - 2013, Hx Migraine Renal/ Medical History: Denies: Hx Peritoneal Dialysis Musculoskeletal Medical History: Reports Hx Arthritis, Reports Hx Fibromyalgia Psychiatric Medical History: Reports: Hx Anxiety, Hx Depression - Immunizations Immunizations up to date: No Hx Diphtheria, Pertussis, Tetanus Vaccination: No Review of Systems - Review of Systems Notes: REVIEW OF SYSTEMS: CONSTITUTIONAL : Denies recent illness. Denies recent unintentional weight loss. Denies fever, chills, or sweats. EENT: Denies eye, ear, throat, or mouth pain, discharge, or symptoms. Denies nasal or sinus congestion. CARDIOVASCULAR: Denies chest pain. RESPIRATORY: Denies shortness of breath, cough, congestion, difficulty breathing , or wheezing. GASTROINTESTINAL: Denies nausea, vomiting, and diarrhea. Denies abdominal pain. Denies constipation. Last BM: GENITOURINARY: Denies difficulty urinating, burning, blood in urine, urgency or frequency. MUSCULOSKELETAL: See HPI. SKIN: Denies rash, itchiness, or lesions HEMATOLOGIC : Denies easy bruising or bleeding. LYMPHATIC: Denies swollen, painful, enlarged glands. NEUROLOGICAL: Denies no numbness or tingling denies weakness. Denies headache. Denies altered mental status. Denies alteration in speech. PSYCHIATRIC: Denies stress, anxiety, alteration in sleep patterns, or depression. All other systems reviewed and negative. Physical Exam - Vital signs Vitals: Temp Pulse Resp BP Pulse Ox 97.5 F 105 H 16 155/111 H 100 08/06/18 21:38 08/06/18 21:38 08/06/18 21:38 08/06/18 21:38 08/06/18 21:38 - Notes Notes: PHYSICAL EXAMINATION: GENERAL: Appears well, healthy, well-nourished, no acute distress. HEAD: Normocephalic, atraumatic. EYES: PERRL, conjunctiva normal, all extraocular movements intact, sclera nonicteric ENT: Moist mucous membranes. NECK: Supple, no noticeable swelling, redness, rash. Normal range of motion. LUNGS: Equal breath sounds bilaterally and clear to auscultation. No wheezes rales or rhonchi. CARDIOVASCULAR: S1-S2, regular rate, regular rhythm. Radial pulses 2+, normal. ABDOMEN: Normoactive bowel sounds. Soft, nontender, no guarding, no rebound tenderness, and no masses palpated. EXTREMITIES: Increase range of motion in right lower extremity and right upper extremity at the shoulder joint. No pitting or edema. No cyanosis. NEUROLOGICAL: Moves all extremities upon command. Strength 5/5 in all extremities. PSYCH: Normal mood, normal affect. SKIN: Warm, dry. No rash, lesions, ulcerations noted. Normal skin turgor. Course - Re-evaluation Re-evalutation: 08/06/18 23:47 X-rays will be obtained of her right shoulder and her right knee. I do not suspect she has a septic joint, DVT, or any life-threatening issues at this time. 08/07/18 00:50 Her right knee x-ray shows a small effusion and her right shoulder x-ray is negative. I discussed these findings with her and discussed the possibility for an MRI and an outpatient basis. I have also advised her that she needs close follow-up with orthopedics. Verbal discharge instructions were given to the patient. She verbalized understanding. Stable for discharge she will be sent home with a knee immobilizer. - Vital Signs Vital signs: Temp Pulse Resp BP Pulse Ox 97.5 F 105 H 16 155/111 H 100 08/06/18 21:38 08/06/18 21:38 08/06/18 21:38 08/06/18 21:38 08/06/18 21:38 Discharge - Discharge Clinical Impression: Right knee pain Qualifiers: Chronicity: chronic Qualified Code(s): M25.561 - Pain in right knee; G89.29 - Other chronic pain; G89.29 - Other chronic pain Right shoulder pain Qualifiers: Chronicity: chronic Qualified Code(s): M25.511 - Pain in right shoulder; G89.29 - Other chronic pain; G89.29 - Other chronic pain Condition: Stable Disposition: HOME, SELF-CARE Additional Instructions: You have been seen today for right knee pain and right shoulder pain. Right shoulder x-ray does not show any abnormalities. Right knee shows a small effusion, which is most likely the cause of your pain. You most likely injured a ligament or meniscus in your knee. These kinds of injuries may heal on their own. Please follow-up with orthopedic doctor in regards to your emergency department visit. You can continue taking naproxen for your pain. We have provided knee immobilizer and crutches for comfort. You may also use Aspercreme with lidocaine [id number] for your pain. Please follow instructions per the box. If your knee or shoulder become worse, you develop a fever greater than 100.4 F, are unable to move your knee, or have any symptoms that are worrisome to you, please return to the emergency department. Referrals: JASON FARIAS MD [ACTIVE STAFF] - Follow up as needed
--- NOTE | 2018-08-07 00:40 | RADIOLOGY REPORT (SQ) ---
EXAM DESCRIPTION: XR SHOULDER 2 OR MORE VIEWS COMPLETED DATE/TME: 08/06/2018 23:36 CLINICAL HISTORY: 47 years, Female, shoulder pain COMPARISON: None. NUMBER OF VIEWS: Three TECHNIQUE: Three views of the right shoulder LIMITATIONS: None. FINDINGS: There is no acute fracture or dislocation. The glenohumeral and AC joints are intact. IMPRESSION: No acute fracture or dislocation 2010 [employer]- All Rights Reserved
--- NOTE | 2018-08-07 00:47 | RADIOLOGY REPORT (SQ) ---
EXAM DESCRIPTION: XR KNEE 4 OR MORE VIEWS COMPLETED DATE/TME: 08/06/2018 23:36 CLINICAL HISTORY: 47 years Female, knee pain COMPARISON: None. Findings: Small effusion. Bones, joints, and soft tissues of the RIGHT XR KNEE 4 VIEWS appear otherwise intact. IMPRESSION: Small right knee effusion.
[2018-08-07 02:24] VITALS: BP 144/108
== END 2018-08-07 01:50 | disposition home or self-care (01) ==
LOC: ER 21:34
DX: M25.511 Pain in right shoulder (principal); M25.561 Pain in right knee; I10 Essential (primary) hypertension
CPT/HCPCS: 99283

== ENCOUNTER → 2018-09-28 | Outpatient (CLI) | payer OTHER ==
[~2018-09-28] MED LIST: DIAZEPAM 5 MG TABLET ONE
--- NOTE | 2018-09-28 13:09 | RADIOLOGY REPORT (SQ) ---
EXAM DESCRIPTION: MRI RT LOWER JOINT WITHOUT COMPLETED DATE/TIME: 09/28/2018 12:30 pm REASON FOR STUDY: RIGHT KNEE PAIN (M25.561) M25.561 PAIN IN RIGHT KNEE COMPARISON: None. TECHNIQUE: Rightknee images acquired and stored on PACS. Multiplanar images include fat sensitive s equences as T1, water sensitive sequences as FST2 or STIR, cartilage sensitive sequences as FSPD, and gradient echo sequences. LIMITATIONS: None. FINDINGS: JOINT AND BURSAE: Joint effusion. BONE CORTEX AND MARROW: No alteration of signal to suggest marrow replacement. No worrisome bone lesi ons. No occult fracture. ACL: Intact. No degeneration or ganglion cyst. PCL: Intact. MCL: Intact. No periligamentous edema or fluid. LCL: Intact. No periligamentous edema or fluid. MEDIAL MENISCUS: Attenuated. Horizontal tear posterior horn. LATERAL MENISCUS: Intact. MEDIAL COMPARTMENT: Moderate osteoarthritis. Subchondral edema femoral condyle. LATERAL COMPARTMENT: Cartilage thinning. No large osteophytes or subchondral edema. PATELLA: Focal blistering of the patellar cartilage. Subchondral cyst trochlea. No subchondral galen a. EXTENSOR MECHANISM: Intact. Quadriceps and patella tendons normal. SOFT TISSUES: Montiel's cyst measuring 4 cm maximum diameter. Fluid extends into the superficial fasci a. OTHER: No other significant finding. IMPRESSION: 1. Chronic medial meniscal tear. 2. Osteoarthritis medial compartment. 3. Ruptured Montiel cyst. TECHNICAL DOCUMENTATION: JOB ID: [id number] [employer]- All Rights Reserved Reading location - IP/workstation name: [facility]
== END ==
LOC: RAD 11:04
DX: M25.561 Pain in right knee (principal)

== ENCOUNTER → 2018-11-07 | Outpatient (CLI) | payer OTHER ==
--- NOTE | 2018-11-07 15:55 | WOMENS IMAGING REPORT ---
EXAM DESCRIPTION: CRISTOFER HICKEY BILATERAL SCREEN COMPLETED DATE/TIME: 11/07/2018 3:16 pm REASON FOR STUDY: ROUTINE BILATERAL SCREENING,Z12.31 Z12.31 ENCNTR SCREEN MAMMOGRAM FOR MALIGNANT N EOPLASM OF MORALES COMPARISON: 09/07/2017 TECHNIQUE: Standard craniocaudal and mediolateral oblique views of each breast recorded using [employer] acquisition. LIMITATIONS: None. FINDINGS: No masses, calcifications or architectural distortion. No areas of suspicion. Read with the assistance of CAD. .[facility] - R2 C[employer]ova Version 1.3 .[facility] - R2 Cenova Version 2.1 .[facility] - R2 Cenova Version 2.4 .[facility] [place] - R2 Cenova Version 2.4 .[facility] - R2 [employer] Version 9.2 IMPRESSION: NORMAL MAMMOGRAM. BIRADS 1. BREAST DENSITY: b. There are scattered areas of fibroglandular density. BIRAD: 1 NEGATIVE RECOMMENDATION: ROUTINE SCREENING COMMENT: The patient has been notified of the results by letter per SA requirements. Additional no tification policies are in place for contacting patient with suspicious or incomplete findings. Quality ID #[id number]: The [employer] recommends an annual screening mammogram for women aged 40 years or over. This facility utilizes a reminder system to ensure that all patients receive reminder letters, and/or direct phone calls for appointments. This includes reminders for routine scr eening mammograms, diagnostic mammograms, or other Breast Imaging Interventions when appropriate. Th is patient will be placed in the appropriate reminder system. The [employer] (ACR) has developed recommendations for screening MRI of the breast s in certain patient populations, to be used in conjunction with mammography. Breast MRI surveillanc e may be appropriate for women with more than 20% lifetime risk of developing breast cancer as deter mined by genetic testing, significant family history of the disease, or history of mantle radiation f or Hodgkins Disease. ACR Practice Guidelines 2008. TECHNICAL DOCUMENTATION: FINDING NUMBER: (1) ASSESSMENT: (1) JOB ID: [id number] [employer]- All Rights Reserved Reading location - IP/workstation name: [email or web address]
== END ==
LOC: WI 14:49
DX: Z12.31 Encounter for screening mammogram for malignant neoplasm of breast (principal)
CPT/HCPCS: 77067

== ENCOUNTER → 2018-12-14 | Outpatient (CLI) | payer OTHER ==
--- NOTE | 2018-12-14 10:24 | RADIOLOGY REPORT (SQ) ---
EXAM DESCRIPTION: MRI LT LOWER JOINT WITHOUT COMPLETED DATE/TIME: 12/14/2018 10:06 am REASON FOR STUDY: PAIN IN LEFT KNEE M25.562 PAIN IN LEFT KNEE COMPARISON: None. TECHNIQUE: Leftknee images acquired and stored on PACS. Multiplanar images include fat sensitive se quences as T1, water sensitive sequences as FST2 or STIR, cartilage sensitive sequences as FSPD, and gradient echo sequences. LIMITATIONS: Motion. FINDINGS: JOINT AND BURSAE: Joint effusion. BONE CORTEX AND MARROW: No alteration of signal to suggest marrow replacement. No worrisome bone lesi ons. No occult fracture. ACL: Intact. No degeneration or ganglion cyst. PCL: Intact. MCL: Intact. No periligamentous edema or fluid. LCL: Intact. No periligamentous edema or fluid. MEDIAL MENISCUS: No tears. No abnormal signal. LATERAL MENISCUS: No tears. No abnormal signal. MEDIAL COMPARTMENT: Cartilage thinning. Small osteophytes. Mild subchondral edema femoral condyle a rticular surface. LATERAL COMPARTMENT: Cartilage preserved. No bone bruises or reactive marrow edema. No osteophytes. PATELLA: High riding patella. Mild lateral translation. No evidence of recent dislocation. Intact retinaculum. EXTENSOR MECHANISM: Intact. Quadriceps and patella tendons normal. SOFT TISSUES: Adjacent muscles and subcutaneous tissues normal. Normal flow void in popliteal artery and vein. OTHER: No other significant finding. IMPRESSION: 1. Chondromalacia. Mild osteoarthritis medial compartment. 2. Joint effusion. TECHNICAL DOCUMENTATION: JOB ID: [id number] [employer]- All Rights Reserved Reading location - IP/workstation name: [email or web address]
== END ==
LOC: RAD 09:24
DX: M22.42 Chondromalacia patellae, left knee (principal); M25.562 Pain in left knee; M25.462 Effusion, left knee

== ENCOUNTER 2019-02-13 18:56 | Emergency (ER) | payer OTHER ==
--- NOTE | 2019-02-13 20:18 | ER Document Report ---
HPI - HPI Patient complains to provider of: right hand injury Time Seen by Provider: 02/13/19 20:05 Onset: This afternoon Onset/Duration: Sudden Severity: Severe Pain Level: 4 Context: Patient presents emergency department with complaints of right hand injury. Reports she slammed her hand in the front door. Has large hematoma and complains of pain across dorsally to 3 4 metacarpals. Has full range of motion denies past medical history of injury to hand. Is right-hand dominant. No complaints of other symptoms such as fever vomiting diarrhea. Associated Symptoms: None Exacerbated by: Denies Relieved by: Denies Similar symptoms previously: No Recently seen / treated by doctor: No - REPRODUCTIVE Reproductive: DENIES: : Past Medical History - General Information source: Patient Last Menstrual Period: ablation - Social History Smoking Status: Unknown if Ever Smoked Cigarette use (# per day): No Frequency of alcohol use: None Drug Abuse: None Family History: Reviewed & Not Pertinent Patient has suicidal ideation: No Patient has homicidal ideation: No - Past Medical History Cardiac Medical History: Reports: Hx Hypertension Neurological Medical History: Reports: Hx Cerebrovascular Accident - 2013, Hx Migraine Renal/ Medical History: Denies: Hx Peritoneal Dialysis Musculoskeletal Medical History: Reports Hx Arthritis, Reports Hx Fibromyalgia Psychiatric Medical History: Reports: Hx Anxiety, Hx Depression Past Surgical History: Reports: Hx Gynecologic Surgery - Immunizations Immunizations up to date: No Hx Diphtheria, Pertussis, Tetanus Vaccination: No Vertical Provider Document - CONSTITUTIONAL Agree With Documented VS: Yes Exam Limitations: No Limitations General Appearance: WD/WN, No Apparent Distress - winces when hand palpated - INFECTION CONTROL TRAVEL OUTSIDE OF THE [place] IN LAST 30 DAYS: No - HEENT HEENT: Atraumatic, Normocephalic - NECK Neck: Supple - RESPIRATORY Respiratory: No Respiratory Distress - MUSCULOSKELETAL/EXTREMETIES Musculoskeletal/Extremeties: MAEW, Tender - right dorsal hand with hematoma & pain across 2-3-4 metacarpals, +FROM, good cap refill, good pedal pulse - NEURO Level of Consciousness: Awake, Alert, Appropriate Motor/Sensory: No Motor Deficit - DERM Integumentary: Warm, Dry Adult Front & Back Diagram: 1 - HEMATOMA +pain 2-3-4 metacarpals, no obvious deformity Course - Re-evaluation Re-evalutation: 02/13/19 20:28 Patient was instructed on negative x-ray. Melquiades wrap will be placed for patient comfort. She was instructed on ice packs for hematoma. She verbalized understanding all instructions. Discharged home Dictation of this chart was performed using voice recognition software; therefore, there may be some unintended grammatical errors. - Vital Signs Vital signs: Temp Pulse Resp BP Pulse Ox 98.4 F 113 H 16 117/90 H 99 02/13/19 19:17 02/13/19 19:17 02/13/19 19:17 02/13/19 19:17 02/13/19 19:17 - Diagnostic Test Radiology reviewed: Image reviewed, Reports reviewed Discharge - Discharge Clinical Impression: right hand crush injury Condition: Stable Disposition: HOME, SELF-CARE Instructions: Acetaminophen, Melquiades Wrap ([facility]), Crush Injury ([facility]), Hematoma ([facility]), Ice & Elevation ([facility]) Additional Instructions: *You have been evaluated for a right hand crush injury *Rest/Ice/Elevate your hand *Maintain the melquiades wrap for comfort *tylenol as indicated for pain *Follow up with orthopedics within 5 days for recheck *Return to ED for worsening condition, changes, needs [facility]errals: [facility] [Primary Care Provider] - Follow up as needed
--- NOTE | 2019-02-13 20:24 | RADIOLOGY REPORT (SQ) ---
EXAM DESCRIPTION: XR HAND 3 OR MORE VIEWS COMPLETED DATE/TME: 02/13/2019 00:00 CLINICAL HISTORY: 48 years, Female, trauma COMPARISON: None. NUMBER OF VIEWS: Three TECHNIQUE: Frontal, oblique, and lateral radiographs of the right hand were obtained. LIMITATIONS: None. FINDINGS: Visualized osseous structures are normal in appearance. Joint spaces are well-maintained. No acute fracture or dislocation is evident. IMPRESSION: No acute osseous anomaly. copyright 2010 [employer]- All Rights Reserved
[2019-02-13 21:05] VITALS: BP 130/91
== END 2019-02-13 20:35 | disposition home or self-care (01) ==
LOC: ER 18:56
DX: S60.221A Contusion of right hand, initial encounter (principal); W23.0XXA Caught, crushed, jammed, or pinched between moving objects, initial encounter; I10 Essential (primary) hypertension
CPT/HCPCS: 99283

== ENCOUNTER 2019-03-29 19:09 | Emergency (ER) | payer OTHER ==
[2019-03-29] MEDS ORDERED: LIDOCAINE 2% VISCOUS SOLN 20 ML UDCUP PO ONE (19:32)
[2019-03-29] MEDS ORDERED: MAG HYDROX/AL HYDROX/SIMETH SUSP 30 ML UDCUP PO ONE (19:32)
[2019-03-29] MEDS ORDERED: METOCLOPRAMIDE HCL ORAL SOLN 10 MG/10 ML UDCUP PO ONE (19:32)
--- NOTE | 2019-03-29 19:33 | ER Document Report ---
ED Medical Screen (RME) - General Chief Complaint: Abdominal Pain Stated Complaint: ABDOMINAL PAIN Time Seen by Provider: 03/29/19 19:27 Primary Care Provider: [facility] [Primary Care Provider] - Follow up as needed Mode of Arrival: Ambulatory Information source: Patient TRAVEL OUTSIDE OF THE [place] IN LAST 30 DAYS: No - HPI Notes: 03/29/19 19:33 48-year-old female presents to the ED with sudden onset epigastric pain approximately one half ago after waking up from the nail. Patient states she Roger and cantaloupe prior to taking a nap earlier. Denies any nausea vomiting or diarrhea. Reports pain is sharp and constant. No [id number] medications have been tried to relieve pain. Denies any chest pain or shortness of breath but does extend that the pain does reside in the substernal area. No trauma. Progressively worse. ROS: Other than noted above, the 12 point review of systems was reviewed with the patient and were negative, all pertinent findings are included in the HPI. PHYSICAL EXAMINATION: Vital signs reviewed. GENERAL: Well-appearing, well-nourished and in no acute distress. CV: Heart regular rate and rhythm LUNGS: No respiratory distress ABD: epigastric abd pain Musculoskeletal: Normal range of motion NEUROLOGICAL: Normal speech PSYCH: Normal mood, normal affect. MDM: Patient seen and examined for rapid initial assessment. Vital signs reviewed. A comprehensive ED assessment and evaluation of the patient, analysis of test results and completion of the medical decision making process will be conducted by additional ED providers. *Note is created using voice recognition software and may contain spelling, syntax or grammatical errors. - Related Data Allergies/Adverse Reactions: lisinopril Allergy (Verified 08/06/18 21:35) Past Medical History - Past Medical History Cardiac Medical History: Reports: Hx Hypertension Neurological Medical History: Reports: Hx Cerebrovascular Accident - 2013, Hx Migraine Renal/ Medical History: Denies: Hx Peritoneal Dialysis Musculoskeltal Medical History: Reports Hx Arthritis, Reports Hx Fibromyalgia Psychiatric Medical History: Reports: Hx Anxiety, Hx Depression Past Surgical History: Reports: Hx Gynecologic Surgery - Immunizations Immunizations up to date: No Hx Diphtheria, Pertussis, Tetanus Vaccination: No Physical Exam - Vital signs Vitals: Temp Pulse Resp BP Pulse Ox 97.8 F 91 16 125/86 H 94 03/29/19 19:25 03/29/19 19:25 03/29/19 19:25 03/29/19 19:25 03/29/19 19:25 Course - Vital Signs Vital signs: Temp Pulse Resp BP Pulse Ox 97.8 F 91 16 125/86 H 94 03/29/19 19:25 03/29/19 19:25 03/29/19 19:25 03/29/19 19:25 03/29/19 19:25 Doctor's Discharge - Discharge Referrals: [facility] [Primary Care Provider] - Follow up as needed
--- NOTE | 2019-03-29 20:24 | RADIOLOGY REPORT (SQ) ---
EXAM DESCRIPTION: XR CHEST 1 VIEW COMPLETED DATE/TME: 03/29/2019 19:33 CLINICAL HISTORY: 48 years, Female, sudden onset epigastric pain Comparison: None FINDINGS: No focal lung consolidation. No pleural effusion. No pneumothorax. Cardiac and mediastinal silhouette is unremarkable. No acute osseous abnormality. Soft tissues are unremarkable. IMPRESSION: No acute findings. No focal lung consolidation.
[2019-03-29 20:36] LABS: APPEARANCE,URINE SLIGHTLY-CLOUDY; BILIRUBIN,URINE NEGATIVE (NEGATIVE); COLOR,URINE YELLOW; GLUCOSE, URINE NEGATIVE (NEGATIVE); KETONES,URINE NEGATIVE (NEGATIVE); LEUKOCYTE ESTERASE,URINE NEGATIVE (NEGATIVE); NITRITE,URINE NEGATIVE (NEGATIVE); PROTEIN,URINE 100 mg/dL (NEGATIVE); URINE SPECIFIC GRAVITY 1.021
[2019-03-29 20:39] LABS: WHITE BLOOD COUNT 12.8 10^3/uL (4.0-10.5)
[2019-03-29 20:40] LABS: ABSOLUTE BASOPHILS # (AUTO) 0.1 10^3/uL (0.0-0.2); ABSOLUTE EOSINOPHILS # (AUTO) 0.4 10^3/uL (0.0-0.6); ABSOLUTE LYMPHOCYTES (AUTO) 2.5 10^3/uL (0.5-4.7); ABSOLUTE MONOCYTES (AUTO) 0.7 10^3/uL (0.1-1.4); ABSOLUTE NEUT (AUTO) 9.1 10^3/uL (1.7-8.2); BASOPHILS % (AUTO) 0.6 % (0-2); EOSINOPHILS % (AUTO) 3.2 % (0-6); HEMATOCRIT 34.6 % (36.0-47.0); HEMOGLOBIN 11.5 g/dL (12.0-15.5); LYMPHOCYTES % (AUTO) 19.7 % (13-45); MEAN CORPUSCULAR HEMOGLOBIN 27.9 pg (27.0-33.4); MEAN CORPUSCULAR HGB CONC 33.2 g/dL (32.0-36.0); MEAN CORPUSCULAR VOLUME 84 fl (80-97); MONOCYTES % (AUTO) 5.3 % (3-13); PLATELET COUNT 353 10^3/uL (150-450); RED BLOOD COUNT 4.13 10^6/uL (3.72-5.28); RED CELL DISTRIBUTION WIDTH 14.7 % (11.5-14.0); SEGMENTED NEUTROPHILS % (AUTO) 71.2 % (42-78); TOTAL CELLS COUNTED % (AUTO) 100 %
[2019-03-29 21:01] LABS: ALANINE AMINOTRANSFERASE 15 U/L (9-52); ALBUMIN 4.3 g/dL (3.5-5.0); ALKALINE PHOSPHATASE 74 U/L (38-126); ANION GAP 10 (5-19); ASPARTATE AMINO TRANSFERASE 38 U/L (14-36); BILIRUBIN,DIRECT 0.3 mg/dL (0.0-0.4); BILIRUBIN,TOTAL 0.5 mg/dL (0.2-1.3); BLOOD UREA NITROGEN 12 mg/dL (7-20); CALCIUM 9.6 mg/dL (8.4-10.2); CARBON DIOXIDE 32 mmol/L (22-30); CHLORIDE 97 mmol/L (98-107); CREATINE KINASE 69 U/L (30-135); GLUCOSE 98 mg/dL (75-110); LIPASE 50.4 U/L (23-300); POTASSIUM 3.2 mmol/L (3.6-5.0); SODIUM 138.7 mmol/L (137-145)
[2019-03-29 21:15] LABS: CREATINE KINASE MB < 0.22 ng/mL (<4.55); TROPONIN I < 0.012 ng/mL
--- NOTE | 2019-03-29 22:01 | RADIOLOGY REPORT (SQ) ---
EXAM DESCRIPTION: RadLex: US ABDOMEN LIMITED CLINICAL HISTORY: 48 years Female; epigastric pain TECHNIQUE: Right upper quadrant ultrasound was performed. COMPARISON: None. FINDINGS: Pancreas: Visualized portions are unremarkable. Liver: 14.6 cm long Portal venous flow is hepatopedal, normal. Gallbladder: normal with no gallstones or sonographic evidence for acute cholecystitis. No pericholecystic fluid. No sonographic Kessler's sign. Common bile duct: 3 mm. Right kidney: 9.4 cm long, somewhat obscured due to artifact. No hydronephrosis. IMPRESSION: 1. Normal right upper quadrant ultrasound.
--- NOTE | 2019-03-29 23:36 | EKG REPORT ---
SEVERITY:- NORMAL ECG - SINUS RHYTHM : Confirmed by: Ximena Pepe 29-Mar-2019 23:36:09
[2019-03-30] MEDS ORDERED: POTASSIUM CHLORIDE 10 MEQ CAPSULE.ER PO ONE (01:48)
--- NOTE | 2019-03-30 03:13 | RADIOLOGY REPORT (SQ) ---
CLINICAL HISTORY: Epigastric pain, HCG NEG COMPARISON: None. TECHNIQUE: CT ABDOMEN PELVIS WITH IV CONTRAST on 03/30/2019 1:47 AM CDT This exam was performed according to our departmental dose-optimization program, which includes automated exposure control, adjustment of the mA and/or kV according to patient size and/or use of iterative reconstruction technique. FINDINGS: Lower lungs are clear. Abdomen: The liver is normal in appearance. There is no biliary dilatation. There is a moderate hiatal hernia. Gallbladder is normal in appearance. The pancreas and spleen are normal in appearance. The adrenal glands and kidneys are unremarkable. Abdominal aorta is normal in course and caliber without aneurysm. There is no free air. There is no retroperitoneal adenopathy. Pelvis: There is no bowel obstruction. Urinary bladder is unremarkable. There is no free fluid. Uterus is normal in size. Appendix is normal. There may be a fundal fibroid measuring 4.2 cm. Skeleton: There are no acute osseous findings. No suspicious bony lesions. IMPRESSION: No acute inflammatory process. No renal or ureteral calculi.
[2019-03-30] MEDS ORDERED: PANTOPRAZOLE SODIUM 40 MG TABLET.DR PO ONE (03:52)
--- NOTE | 2019-03-30 03:55 | ER Document Report ---
ED GI/ - General Chief Complaint: Abdominal Pain Stated Complaint: ABDOMINAL PAIN Time Seen by Provider: 03/29/19 19:27 Primary Care Provider: SMITH PATTERSON MD [NO LOCAL MD] - [facility] - Follow up as needed Mode of Arrival: Ambulatory TRAVEL OUTSIDE OF THE [place] IN LAST 30 DAYS: No - HPI Patient complains to provider of: Abdominal pain Onset: Just prior to arrival Timing/Duration: Sudden Quality of pain: Achy, Dull Severity at maximum: Moderate Severity in ED: Mild Pain Level: 2 Context: Other - Started after eating watermelon and cantaloupe. Location: Epigastric Vaginal bleeding (Compared to normal period): None Associated symptoms: None Exacerbated by: Denies Relieved by: Denies Similar symptoms previously: No Recently seen / treated by doctor: No - Related Data Allergies/Adverse Reactions: lisinopril Allergy (Verified 08/06/18 21:35) Past Medical History - General Information source: Patient - Social History Smoking Status: Never Smoker Chew tobacco use (# tins/day): No Frequency of alcohol use: None Drug Abuse: None Family History: Reviewed & Not Pertinent Patient has suicidal ideation: No Patient has homicidal ideation: No - Past Medical History Cardiac Medical History: Reports: Hx Hypertension Neurological Medical History: Reports: Hx Cerebrovascular Accident - 2013, Hx Migraine Renal/ Medical History: Denies: Hx Peritoneal Dialysis Musculoskeletal Medical History: Reports Hx Arthritis, Reports Hx Fibromyalgia Psychiatric Medical History: Reports: Hx Anxiety, Hx Depression Past Surgical History: Reports: Hx Gynecologic Surgery - Immunizations Immunizations up to date: No Hx Diphtheria, Pertussis, Tetanus Vaccination: No Review of Systems - Review of Systems Constitutional: No symptoms reported EENT: No symptoms reported Cardiovascular: No symptoms reported Respiratory: No symptoms reported Gastrointestinal: Abdominal pain Genitourinary: No symptoms reported Female Genitourinary: No symptoms reported Musculoskeletal: No symptoms reported Skin: No symptoms reported Hematologic/Lymphatic: No symptoms reported Neurological/Psychological: No symptoms reported -: Yes All other systems reviewed and negative Physical Exam - Vital signs Vitals: Temp Pulse Resp BP Pulse Ox 97.8 F 91 16 125/86 H 94 03/29/19 19:25 03/29/19 19:25 03/29/19 19:25 03/29/19 19:25 03/29/19 19:25 Interpretation: Normal - General General appearance: Appears well, Alert In distress: None Notes: Obesity. - HEENT Head: Normocephalic, Atraumatic Eyes: Normal Pupils: PERRL - Respiratory Respiratory status: No respiratory distress Chest status: Nontender Breath sounds: Normal Chest palpation: Normal - Cardiovascular Rhythm: Regular Heart sounds: Normal auscultation Murmur: No - Abdominal Inspection: Normal Distension: No distension Bowel sounds: Normal Tenderness: Nontender Organomegaly: No organomegaly - Back Back: Normal, Nontender - Extremities General upper extremity: Normal inspection, Nontender, Normal color, Normal ROM, Normal temperature General lower extremity: Normal inspection, Nontender, Normal color, Normal ROM, Normal temperature, Normal weight bearing. No: Janet's sign - Neurological Neuro grossly intact: Yes Cognition: Normal Orientation: AAOx4 Deep Coma Scale Eye Opening: Spontaneous Deep Coma Scale Verbal: Oriented Deep Coma Scale Motor: Obeys Commands Deep Coma Scale Total: 15 Speech: Normal Motor strength normal: LUE, RUE, LLE, RLE Sensory: Normal - Psychological Associated symptoms: Normal affect, Normal mood - Skin Skin Temperature: Warm Skin Moisture: Dry Skin Color: Normal Course - Re-evaluation Re-evalutation: 03/31/19 00:48 Patient says she is feeling much better and she would like to be discharged home. - Vital Signs Vital signs: Temp Pulse Resp BP Pulse Ox 98.1 F 93 18 155/97 H 100 03/30/19 04:00 03/30/19 04:00 03/30/19 04:00 03/30/19 04:00 03/30/19 04:00 - Laboratory Result Diagrams: 03/29/19 20:20 03/29/19 20:20 Laboratory results interpreted by me: 03/29/19 03/29/19 03/29/19 19:00 20:20 20:20 WBC 12.8 H Hgb 11.5 L Hct 34.6 L RDW 14.7 H Absolute Neutrophils 9.1 H Potassium 3.2 L Chloride 97 L Carbon Dioxide 32 H AST 38 H Urine Protein 100 H Urine Urobilinogen 4.0 H - Diagnostic Test Radiology reviewed: Image reviewed, Reports reviewed Radiology results interpreted by me: 03/31/19 00:[address] of the abdomen and pelvis. Discharge - Discharge Clinical Impression: GERD (gastroesophageal reflux disease) Qualifiers: Esophagitis presence: without esophagitis Qualified Code(s): K21.9 - Gastro-eso phageal reflux disease without esophagitis Abdominal pain Qualifiers: Abdominal location: epigastric Qualified Code(s): R10.13 - Epigastric pain Condition: Stable Disposition: HOME, SELF-CARE Instructions: Abdominal Pain ([facility]), Reflux Disease (GERD) ([facility]) Additional Instructions: Please follow-up with your primary doctor in 2 to 3 days. Return to the emergency room if you condition worsens. Prescriptions: RX: Omeprazole 40 mg PO DAILY #30 capsule. Referrals: [facility] [NO LOCAL MD] - Follow up as needed SMITH PATTERSON MD [NO LOCAL MD] - Follow up as needed
[2019-03-30 05:14] VITALS: BP 155/97
== END 2019-03-30 04:00 | disposition home or self-care (01) ==
LOC: ER 19:09
DX: K21.9 Gastro-esophageal reflux disease without esophagitis (principal); R10.13 Epigastric pain; I10 Essential (primary) hypertension
CPT/HCPCS: 93005; 99285; 36415; 82553; 82550; 83690; 85025; 81025; 80053; 81001; 84484; 71045; 76705; 74177; 93010; J3490

== ENCOUNTER 2019-04-24 03:45 | Emergency (ER) | payer OTHER ==
--- NOTE | 2019-04-24 04:04 | ER Document Report ---
ED General - General Chief Complaint: Abdominal Pain Stated Complaint: ABDOMINAL PAIN Time Seen by Provider: 04/24/19 03:57 Primary Care Provider: GILES RANGEL MD [Primary Care Provider] - Follow up in 3-5 days Mode of Arrival: Ambulatory Information source: Patient, [facility] Records Notes: 48-year-old female with chronic abdominal pain, hypertension, fibromyalgia, d epression presents with complaint of right upper quadrant abdominal pain that has been intermittent for 2 years. Patient has been seen 4 times in the month of March for similar symptoms. During this time she has had an MRI of her abdomen which showed no acute process, CT of her abdomen which also showed no acute findings and an ultrasound of her right upper quadrant that showed no evidence of gallbladder disease. Patient has associated nausea without vomiting. She describes the pain as sharp, cramping. She denies any aggravating or alleviating factors. Patient is scheduled to follow-up with gastroenterology in April of this year. Patient denies any fever, chest pain, shortness of breath, dysuria, hematuria, vaginal discharge, sick contacts, recent travel, recent antibiotic use. She has had prior similar symptoms. TRAVEL OUTSIDE OF THE [place] IN LAST 30 DAYS: No - HPI Onset: Other Onset/Duration: Intermittent Quality of pain: Cramping, Sharp Severity: Moderate Pain Level: 2 Associated symptoms: Nausea. denies: Chest pain, Chills, Diarrhea, Fever, Vomiting, Shortness of breath, Sweating, Weakness Exacerbated by: Denies Relieved by: Denies Similar symptoms previously: Yes Recently seen / treated by doctor: Yes - Related Data Allergies/Adverse Reactions: lisinopril Allergy (Verified 04/08/19 10:13) Past Medical History - General Information source: Patient, [facility] Records - Social History Smoking Status: Never Smoker Frequency of alcohol use: None Drug Abuse: None Lives with: Family Family History: Reviewed & Not Pertinent Patient has suicidal ideation: No Patient has homicidal ideation: No - Past Medical History Cardiac Medical History: Reports: Hx Hypertension Neurological Medical History: Reports: Hx Cerebrovascular Accident - 2013, Hx Migraine Renal/ Medical History: Denies: Hx Peritoneal Dialysis Musculoskeletal Medical History: Reports Hx Arthritis, Reports Hx Fibromyalgia Psychiatric Medical History: Reports: Hx Anxiety, Hx Depression Past Surgical History: Reports: Hx Gynecologic Surgery, Other - Esophageal dilatation x2, most resent one in 2016 - Immunizations Immunizations up to date: No Hx Diphtheria, Pertussis, Tetanus Vaccination: No Review of Systems - Review of Systems Notes: REVIEW OF SYSTEMS: CONSTITUTIONAL : Denies fever, chills, or sweats. Denies recent illness. Denies weight loss, recent hospitalizations. EENT: Denies visual changes, eye pain. Denies sore throat, oral lesions, difficulty swallowing. CARDIOVASCULAR: Denies chest pain. Denies palpitations. Denies lower extremity edema. RESPIRATORY: Denies cough. Denies shortness of breath, wheezing. GASTROINTESTINAL: Denies abdominal distention. Denies nausea, vomiting, or diarrhea. Denies blood in vomitus, stools, or per rectum. Denies black, tarry stools. Denies constipation. GENITOURINARY: Denies difficulty urinating, painful urination, frequency, blood in urine, or vaginal discharge. MUSCULOSKELETAL: Denies back or neck pain or stiffness. Denies joint pain or swelling. SKIN: Denies rash, lesions or sores. HEMATOLOGIC : Denies easy bruising or bleeding. LYMPHATIC: Denies swollen glands. NEUROLOGICAL: Denies confusion or altered mental status. Denies loss of consciousness. Denies dizziness or lightheadedness. Denies headache. Denies weakness or paralysis. Denies problems difficulty with ambulation, slurred speech. Denies sensory loss, numbness, or tingling. Denies seizures. PSYCHIATRIC: Denies anxiety or stress. Denies depression, suicidal ideation, or homicidal ideation. Denies visual or auditory hallucinations. Physical Exam - Vital signs Vitals: Temp Pulse Resp BP Pulse Ox 97.7 F 110 H 22 H 156/108 H 95 04/24/19 03:48 04/24/19 03:48 04/24/19 03:48 04/24/19 03:48 04/24/19 03:48 Course - Re-evaluation Re-evalutation: 04/25/19 16:24 Laboratory 04/24/19 04/24/19 04/24/19 04:16 04:16 04:45 WBC 9.6 RBC 4.14 Hgb 11.8 L Hct 35.5 L MCV 86 MCH 28.4 MCHC 33.2 RDW 15.2 H Plt Count 282 Seg Neutrophils % 52.0 Lymphocytes % 34.4 Monocytes % 7.9 Eosinophils % 4.3 Basophils % 1.4 Absolute Neutrophils 5.0 Absolute Lymphocytes 3.3 Absolute Monocytes 0.8 Absolute Eosinophils 0.4 Absolute Basophils 0.1 Sodium 138.3 Potassium 3.1 L Chloride 105 Carbon Dioxide 24 Anion Gap 9 BUN 11 Creatinine 0.83 Est GFR ( Amer) > 60 Est GFR (Non-Af Amer) > 60 Glucose 121 H Calcium 9.4 Total Bilirubin 0.6 Direct Bilirubin 0.3 Neonat Total Bilirubin Not Reportable Neonat Direct Bilirubin Not Reportable Neonat Indirect Bili Not Reportable AST 62 H ALT 31 Alkaline Phosphatase 61 Total Protein 7.0 Albumin 3.9 Lipase 85.6 Urine Color YELLOW Urine Appearance SLIGHTLY-CLOUDY Urine pH 5.0 Ur Specific [place] 1.023 Urine Protein NEGATIVE Urine Glucose (UA) NEGATIVE Urine Ketones NEGATIVE Urine Blood SMALL H Urine Nitrite NEGATIVE Urine Bilirubin SMALL H Urine Urobilinogen 4.0 H Ur Leukocyte Esterase TRACE H Urine WBC (Auto) 7 Urine RBC (Auto) 3 Urine Bacteria (Auto) 3+ Squamous Epi Cells Auto 17 Urine Mucus (Auto) FEW Urine Ascorbic Acid NEGATIVE Urine HCG, Qual NEGATIVE Temp Pulse Resp BP Pulse Ox 98.5 F 96 18 127/72 H 99 04/24/19 05:37 04/24/19 05:37 04/24/19 05:37 04/24/19 05:37 04/24/19 05:37 48-year-old female with chronic abdominal pain presents with complaint of abdominal pain. Vital signs reviewed and within normal limits. Patient does not appear toxic. She is in no acute distress. Previous medical records and nursing notes reviewed including patient's recent imaging of abdominal MRI which was normal. Patient has also had numerous CAT scans and ultrasounds which were also normal. Patient reports upcoming appointment with gastroenterology. CBC is without leukocytosis or anemia. CMP shows no electrolyte abnormality. Urinalysis not consistent with infection. At this time we do not feel any further imaging is warranted as patient has had thorough imaging without source of abdominal pain. I feel the next step is an endoscopy which the patient states she has scheduled. Patient had pain control after 1 dose of morphine and Zofran. Patient was evaluated and treated as appropriate for the patient's presenting symptoms and complaint, with consideration of any critical or life threatening conditions that may be associated with their obtained history and exam as noted above. All results were discussed with patient . Patient provided the opportunity to ask questions, and express concerns. Patient was educated on treatments based on their presumed diagnosis as noted above. At this time we w ill discharge the patient with return precautions and follow-up recommendations. Verbal discharge instructions given a the bedside. Medication warnings reviewed. Patient is in agreement with this plan and has verbalized understanding of return precautions. After careful consideration I feel that that patient can be safely discharged from the emergency department, they were advised to followup with a primary care physician in 2-3 days. Dictation on this chart was performed using voice recognition software and may result in unintended grammatical, spelling, syntax or errors. - Vital Signs Vital signs: Temp Pulse Resp BP Pulse Ox 98.5 F 96 18 127/72 H 99 04/24/19 05:37 04/24/19 05:37 04/24/19 05:37 04/24/19 05:37 04/24/19 05:37 - Laboratory Result Diagrams: 04/24/19 04:16 04/24/19 04:16 Laboratory results interpreted by me: 04/24/19 04/24/19 04/24/19 04:16 04:16 04:45 Hgb 11.8 L Hct 35.5 L RDW 15.2 H Potassium 3.1 L Glucose 121 H AST 62 H Urine Blood SMALL H Urine Bilirubin SMALL H Urine Urobilinogen 4.0 H Ur Leukocyte Esterase TRACE H - Diagnostic Test Radiology reviewed: Image reviewed, Reports reviewed Discharge - Discharge Clinical Impression: Chronic abdominal pain Condition: Good Disposition: HOME, SELF-CARE Instructions: Abdominal Pain ([facility]) Additional Instructions: You have been seen in the Emergency Department (ED) for abdominal pain. Your evaluation did not identify a clear cause of your symptoms but was generally reassuring. Please follow up with your doctor as soon as possible regarding today's emergent visit and the symptoms that are bothering you. Return to the ED if your abdominal pain worsens or fails to improve, you develop bloody vomiting, bloody diarrhea, you are unable to tolerate fluids due to vomiting, fever greater than 101, or other symptoms that concern you. Prescriptions: Dicyclomine HCl [Bentyl 20 mg Tablet] 20 mg PO QID #20 tablet Ondansetron [Zofran Odt 4 mg Tablet] 1 - 2 tab PO Q4H PRN #15 tab.rapdis PRN Reason: For Nausea/Vomiting Sucralfate [Carafate 1 gm Tablet] 1 gm PO ACHS #30 tablet Forms: Elevated Blood Pressure Referrals: GILES RANGEL MD [Primary Care Provider] - Follow up in 3-5 days
[2019-04-24] MEDS ORDERED: OXYCODONE-ACETAMINOPHEN 5-325 MG TABLET PO ONE (04:05)
[2019-04-24] MEDS ORDERED: METOCLOPRAMIDE HCL ORAL SOLN 10 MG/10 ML UDCUP PO ONE (04:05)
[2019-04-24] MEDS ORDERED: MAG HYDROX/AL HYDROX/SIMETH SUSP 30 ML UDCUP PO ONE (04:05)
[2019-04-24] MEDS ORDERED: ONDANSETRON 4 MG TAB.RAPDIS PO ONE (04:05)
[2019-04-24] MEDS ORDERED: LIDOCAINE 2% VISCOUS SOLN 20 ML UDCUP PO ONE (04:05)
[2019-04-24 04:48] LABS: ABSOLUTE BASOPHILS # (AUTO) 0.1 10^3/uL (0.0-0.2); ABSOLUTE EOSINOPHILS # (AUTO) 0.4 10^3/uL (0.0-0.6); ABSOLUTE LYMPHOCYTES (AUTO) 3.3 10^3/uL (0.5-4.7); ABSOLUTE MONOCYTES (AUTO) 0.8 10^3/uL (0.1-1.4); BASOPHILS % (AUTO) 1.4 % (0-2); EOSINOPHILS % (AUTO) 4.3 % (0-6); HEMATOCRIT 35.5 % (36.0-47.0); HEMOGLOBIN 11.8 g/dL (12.0-15.5); LYMPHOCYTES % (AUTO) 34.4 % (13-45); MEAN CORPUSCULAR HEMOGLOBIN 28.4 pg (27.0-33.4); MEAN CORPUSCULAR HGB CONC 33.2 g/dL (32.0-36.0); MEAN CORPUSCULAR VOLUME 86 fl (80-97); MONOCYTES % (AUTO) 7.9 % (3-13); PLATELET COUNT 282 10^3/uL (150-450); RED BLOOD COUNT 4.14 10^6/uL (3.72-5.28); RED CELL DISTRIBUTION WIDTH 15.2 % (11.5-14.0); TOTAL CELLS COUNTED % (AUTO) 100 %; WHITE BLOOD COUNT 9.6 10^3/uL (4.0-10.5)
[2019-04-24 05:12] LABS: ALANINE AMINOTRANSFERASE 31 U/L (9-52); ALBUMIN 3.9 g/dL (3.5-5.0); ALKALINE PHOSPHATASE 61 U/L (38-126); ANION GAP 9 (5-19); ASPARTATE AMINO TRANSFERASE 62 U/L (14-36); BILIRUBIN,DIRECT 0.3 mg/dL (0.0-0.4); BILIRUBIN,TOTAL 0.6 mg/dL (0.2-1.3); BLOOD UREA NITROGEN 11 mg/dL (7-20); CALCIUM 9.4 mg/dL (8.4-10.2); CARBON DIOXIDE 24 mmol/L (22-30); CHLORIDE 105 mmol/L (98-107); GLUCOSE 121 mg/dL (75-110); POTASSIUM 3.1 mmol/L (3.6-5.0)
[2019-04-24 05:38] VITALS: BP 127/72
[2019-04-24 05:41] LABS: APPEARANCE,URINE SLIGHTLY-CLOUDY; BILIRUBIN,URINE SMALL (NEGATIVE); COLOR,URINE YELLOW; GLUCOSE, URINE NEGATIVE (NEGATIVE); KETONES,URINE NEGATIVE (NEGATIVE); LEUKOCYTE ESTERASE,URINE TRACE (NEGATIVE); NITRITE,URINE NEGATIVE (NEGATIVE); PROTEIN,URINE NEGATIVE (NEGATIVE); URINE SPECIFIC GRAVITY 1.023
== END 2019-04-24 05:38 | disposition home or self-care (01) ==
LOC: ER 03:45
DX: G89.29 Other chronic pain (principal); R10.11 Right upper quadrant pain; I10 Essential (primary) hypertension; R11.0 Nausea
CPT/HCPCS: 99284; 36415; 83690; 85025; 81025; 80053; 81001; S0119; J3490

== ENCOUNTER 2019-04-26 10:21 | Emergency (ER) | payer OTHER ==
[2019-04-26] MEDS ORDERED: KETOROLAC TROMETHAMINE 60 MG/2 ML SDV IM ONE (10:55)
[2019-04-26] MEDS ORDERED: METOCLOPRAMIDE HCL 10 MG TABLET PO ONE (10:57)
--- NOTE | 2019-04-26 11:05 | ER Document Report ---
ED General - General Chief Complaint: Upper Abdominal Pain Stated Complaint: ABDOMINAL PAIN Time Seen by Provider: 04/26/19 10:34 Primary Care Provider: GILES RANGEL MD [HONORARY] - Follow up in 3-5 days Mode of Arrival: Ambulatory Information source: Patient Notes: 48-year-old female presents emergency department with complaints of chronic abdominal pain. Patient was just evaluated in the emergency department 2 days ago for same pain. Review of records shows that patient's been here multiple times for the same chronic abdominal pain. She recently had an MRI done on April 08 and that was negative. Patient reports she is had the pain for over 2 years. She reports pain is in the same place on the right side she reports it alternates from sharp pain to dull pain increased pain when you touch or when she lays on that side. She reports she is nauseated even though she took all her medications that were prescribed for her from the other day when she was at the emergency department. She denies fever vomiting diarrhea. Denies trauma. Reports she is voiding okay last bowel movement was Wednesday which was unusual for her denies vaginal discharge. Reports she does not have a menses because she is had ablation. Denies recent trips. Reports she lives with her family and nobody is sick. TRAVEL OUTSIDE OF THE [place] IN LAST 30 DAYS: No - HPI Onset: Other - 2 years Onset/Duration: Persistent Quality of pain: Dull, Sharp Severity: Severe Pain Level: 5 Associated symptoms: Nausea Exacerbated by: Other - touch, pressure Relieved by: Denies Similar symptoms previously: Yes Recently seen / treated by doctor: Yes - Related Data Allergies/Adverse Reactions: lisinopril Allergy (Verified 04/26/19 10:22) Past Medical History - General Information source: Patient Last Menstrual Period: ablation - Social History Smoking Status: Unknown if Ever Smoked Cigarette use (# per day): No Frequency of alcohol use: None Drug Abuse: None Occupation: none Lives with: Family Family History: Reviewed & Not Pertinent Patient has suicidal ideation: No Patient has homicidal ideation: No - Past Medical History Cardiac Medical History: Reports: Hx Hypertension Neurological Medical History: Reports: Hx Cerebrovascular Accident - 2013, Hx Migraine Renal/ Medical History: Denies: Hx Peritoneal Dialysis Musculoskeletal Medical History: Reports Hx Arthritis, Reports Hx Fibromyalgia Psychiatric Medical History: Reports: Hx Anxiety, Hx Depression Past Surgical History: Reports: Hx Gynecologic Surgery, Other - Esophageal dilatation x2, most resent one in 2016 - Immunizations Immunizations up to date: No Hx Diphtheria, Pertussis, Tetanus Vaccination: No Review of Systems - Review of Systems Notes: Review HPI for review of systems., All other systems negative Physical Exam - Vital signs Vitals: Temp Pulse Resp BP Pulse Ox 97.4 F 94 24 H 153/111 H 96 04/26/19 10:26 04/26/19 10:26 04/26/19 10:26 04/26/19 10:04/26/19 10:26 - General General appearance: Alert, Anxious In distress: Moderate - Rolling and moaning on the bed - HEENT Head: Normocephalic, Atraumatic Eyes: Normal Conjunctiva: Normal Neck: Normal, Supple. No: Lymphadenopathy - Respiratory Respiratory status: No respiratory distress Chest status: Nontender Breath sounds: Normal Chest palpation: Normal - Cardiovascular Rhythm: Regular Heart sounds: Normal auscultation Murmur: No - Abdominal Inspection: Normal Distension: No distension Bowel sounds: Normal Tenderness: Tender - Right mid upper side tender to palpate no erythema no swelling no warmth area soft Organomegaly: No organomegaly Adult front & back diagram: 1 - Patient reports area tender to palpate. Reports that patient is constantly hurting alternating with dull to sharp pain. - Back Back: Normal - Extremities General upper extremity: Normal ROM General lower extremity: Normal ROM - Neurological Neuro grossly intact: Yes Cognition: Normal Orientation: AAOx4 Deep Coma Scale Eye Opening: Spontaneous Deep Coma Scale Verbal: Oriented [place] Coma Scale Motor: Obeys Commands Deep Coma Scale Total: 15 Speech: Normal - Psychological Associated symptoms: Normal affect, Normal mood - Skin Skin Temperature: Warm Skin Moisture: Dry Skin Color: Normal Course - Re-evaluation Re-evalutation: 04/26/19 11:05 This 48-year-old female presents emergency department with complaints of abdominal pain. Reports she is had abdominal pain for the past 2 years. Reports it stays on the same side the right side. She reports the pain alternates from sharp to dull. She reports increased pain when she lays on that side or it is palpated. Patient complains of some nausea but denies fever vomiting diarrhea. Reports last bowel movement was Wednesday. Denies pain with void denies vaginal discharge. Patient has been evaluated at this emergency department for this pain several times. She recently had an MRI done on April 08 which was negative. Patient reports she did take Bentyl and Zofran this morning. Will obtain labs KUB try to give her some relief with Toradol and Reglan. 04/26/19 15:36 Patient reports she is feeling much better pain is 0/5. AST/ALT elevated. Reviewed patient's previous visit as noted that her enzymes go up and down. I discussed this with patient. She reports she is aware of it. Review of records shows negative hepatitis MRI CT were negative KUB negative all other labs unremarkable. Patient was instructed on the importance of follow-up with her primary care provider for evaluation of this chronic abdominal pain she verbalized understanding. Patient reports she feels great now. No distress. Discharged home KUB X-Ray 04/26/19 10:55 IMPRESSION: NO RADIOGRAPHIC EVIDENCE FOR ACUTE ABDOMINAL DISEASE. 04/26/19 11:30 04/26/19 11:30 MCV 85 fl (80-97) 04/26/19 11:30 MCH 28.3 pg (27.0-33.4) 04/26/19 11:30 MCHC 33.1 g/dL (32.0-36.0) 04/26/19 11:30 RDW 15.3 % (11.5-14.0) H 04/26/19 11:30 Seg Neutrophils % 70.2 % (42-78) 04/26/19 11:30 Lymphocytes % 18.1 % (13-45) 04/26/19 11:30 Monocytes % 8.6 % (3-13) 04/26/19 11:30 Eosinophils % 2.7 % (0-6) 04/26/19 11:30 Basophils % 0.4 % (0-2) 04/26/19 11:30 Absolute Neutrophils 6.1 10^3/uL (1.7-8.2) 04/26/19 11:30 Absolute Lymphocytes 1.6 10^3/uL (0.5-4.7) 04/26/19 11:30 Absolute Monocytes 0.7 10^3/uL (0.1-1.4) 04/26/19 11:30 Absolute Eosinophils 0.2 10^3/uL (0.0-0.6) 04/26/19 11:30 Absolute Basophils 0.0 10^3/uL (0.0-0.2) 04/26/19 11:30 Chloride 103 mmol/L (98-107) 04/26/19 11:30 Carbon Dioxide 28 mmol/L (22-30) 04/26/19 11:30 Anion Gap 8 (5-19) 04/26/19 11:30 Est GFR ( Amer) > 60 (>60) 04/26/19 11:30 Est GFR (Non-Af Amer) > 60 (>60) 04/26/19 11:30 Glucose 102 mg/dL (75-110) 04/26/19 11:30 Calcium 9.1 mg/dL (8.4-10.2) 04/26/19 11:30 Total Bilirubin 1.2 mg/dL (0.2-1.3) 04/26/19 11:30 AST 726 U/L (14-36) H 04/26/19 11:30 ALT 288 U/L (9-52) H 04/26/19 11:30 Alkaline Phosphatase 87 U/L (38-126) 04/26/19 11:30 Total Protein 7.1 g/dL (6.3-8.2) 04/26/19 11:30 Albumin 3.9 g/dL (3.5-5.0) 04/26/19 11:30 Lipase 112.4 U/L (23-300) 04/26/19 11:30 Urine Color YELLOW 04/26/19 12:25 Urine Appearance CLEAR 04/26/19 12:25 Urine pH 6.0 (5.0-9.0) 04/26/19 12:25 Ur Specific [place] 1.005 04/26/19 12:25 Urine Protein NEGATIVE mg/dL (NEGATIVE) 04/26/19 12:25 Urine Glucose (UA) NEGATIVE mg/dL (NEGATIVE) 04/26/19 12:25 Urine Ketones NEGATIVE mg/dL (NEGATIVE) 04/26/19 12:25 Urine Blood NEGATIVE (NEGATIVE) 04/26/19 12:25 Urine Nitrite NEGATIVE (NEGATIVE) 04/26/19 12:25 Ur Leukocyte Esterase NEGATIVE (NEGATIVE) 04/26/19 12:25 Urine WBC (Auto) 0 /HPF 04/26/19 12:25 - Vital Signs Vital signs: Temp Pulse Resp BP Pulse Ox 98.3 F 87 14 141/101 H 99 04/26/19 16:39 04/26/19 16:39 04/26/19 16:39 04/26/19 16:39 04/26/19 16:39 - Laboratory Result Diagrams: 04/26/19 11:30 04/26/19 11:30 Laboratory results interpreted by me: 04/26/19 04/26/19 04/26/19 11:30 11:30 11:30 Hgb 11.3 L Hct 34.3 L RDW 15.3 H Potassium 3.3 L Direct Bilirubin 0.6 H AST 726 H ALT 288 H Urine Urobilinogen Acetaminophen < 10 L 04/26/19 12:25 Hgb Hct RDW Potassium Direct Bilirubin AST ALT Urine Urobilinogen 2.0 H Acetaminophen - Diagnostic Test Radiology reviewed: Image reviewed, Reports reviewed Discharge - Discharge Clinical Impression: abdominal pain Condition: Stable Disposition: HOME, SELF-CARE Instructions: Abdominal Pain ([facility]), Liver Function Abnormality ([facility]) Additional Instructions: *You have been evaluated for chronic abdominal pain, elevated liver enzymes *Take your medication as prescribed *Follow up with a primary care provider within one week *Return to ED for worsening condition, changes, needs *Return to ED if not better in 24 hours Referrals: GILES RANGEL MD [HONORARY] - Follow up in 3-5 days
--- NOTE | 2019-04-26 11:20 | RADIOLOGY REPORT (SQ) ---
EXAM DESCRIPTION: KUB/ABDOMEN (SINGLE VIEW) COMPLETED DATE/TIME: 04/26/2019 11:07 am REASON FOR STUDY: abd pain COMPARISON: 04/08/2019 NUMBER OF VIEWS: One view. TECHNIQUE: Supine radiographic image of the abdomen acquired. LIMITATIONS: None. FINDINGS: BOWEL GAS PATTERN: Normal bowel gas pattern. No dilated loops. CALCIFICATIONS: No suspicious calcifications. SOFT TISSUES: No gross mass or suggestion of organomegaly. HARDWARE: None in the abdomen. BONES: No acute fracture. No worrisome bone lesions. OTHER: No other significant finding. IMPRESSION: NO RADIOGRAPHIC EVIDENCE FOR ACUTE ABDOMINAL DISEASE. TECHNICAL DOCUMENTATION: JOB ID: [id number] [employer]- All Rights Reserved Reading location - IP/workstation name: [email or web address]
[2019-04-26 11:58] LABS: ABSOLUTE EOSINOPHILS # (AUTO) 0.2 10^3/uL (0.0-0.6); ABSOLUTE LYMPHOCYTES (AUTO) 1.6 10^3/uL (0.5-4.7); ABSOLUTE MONOCYTES (AUTO) 0.7 10^3/uL (0.1-1.4); ABSOLUTE NEUT (AUTO) 6.1 10^3/uL (1.7-8.2); BASOPHILS % (AUTO) 0.4 % (0-2); EOSINOPHILS % (AUTO) 2.7 % (0-6); HEMATOCRIT 34.3 % (36.0-47.0); HEMOGLOBIN 11.3 g/dL (12.0-15.5); LYMPHOCYTES % (AUTO) 18.1 % (13-45); MEAN CORPUSCULAR HEMOGLOBIN 28.3 pg (27.0-33.4); MEAN CORPUSCULAR HGB CONC 33.1 g/dL (32.0-36.0); MEAN CORPUSCULAR VOLUME 85 fl (80-97); MONOCYTES % (AUTO) 8.6 % (3-13); PLATELET COUNT 275 10^3/uL (150-450); RED BLOOD COUNT 4.01 10^6/uL (3.72-5.28); RED CELL DISTRIBUTION WIDTH 15.3 % (11.5-14.0); SEGMENTED NEUTROPHILS % (AUTO) 70.2 % (42-78); TOTAL CELLS COUNTED % (AUTO) 100 %; WHITE BLOOD COUNT 8.7 10^3/uL (4.0-10.5)
[2019-04-26 12:04] LABS: ALANINE AMINOTRANSFERASE 288 U/L (9-52); ALBUMIN 3.9 g/dL (3.5-5.0); ALKALINE PHOSPHATASE 87 U/L (38-126); ANION GAP 8 (5-19); ASPARTATE AMINO TRANSFERASE 726 U/L (14-36); BILIRUBIN,DIRECT 0.6 mg/dL (0.0-0.4); BILIRUBIN,TOTAL 1.2 mg/dL (0.2-1.3); BLOOD UREA NITROGEN 10 mg/dL (7-20); CALCIUM 9.1 mg/dL (8.4-10.2); CARBON DIOXIDE 28 mmol/L (22-30); CHLORIDE 103 mmol/L (98-107); GLUCOSE 102 mg/dL (75-110); POTASSIUM 3.3 mmol/L (3.6-5.0); TOTAL PROTEIN 7.1 g/dL (6.3-8.2)
[2019-04-26 12:49] LABS: APPEARANCE,URINE CLEAR; BILIRUBIN,URINE NEGATIVE (NEGATIVE); COLOR,URINE YELLOW; GLUCOSE, URINE NEGATIVE (NEGATIVE); KETONES,URINE NEGATIVE (NEGATIVE); LEUKOCYTE ESTERASE,URINE NEGATIVE (NEGATIVE); NITRITE,URINE NEGATIVE (NEGATIVE); PROTEIN,URINE NEGATIVE (NEGATIVE); URINE SPECIFIC GRAVITY 1.005
[2019-04-26 13:03] LABS: URINE AMPHETAMINES SCREEN NEGATIVE; URINE BARBITURATES SCREEN NEGATIVE; URINE BENZODIAZEPINES SCREEN NEGATIVE; URINE COCAINE SCREEN NEGATIVE; URINE MARIJUANA (THC) SCREEN NEGATIVE; URINE METHADONE SCREEN NEGATIVE; URINE PHENCYCLIDINE SCREEN NEGATIVE
[2019-04-26 16:40] VITALS: BP 141/101
== END 2019-04-26 16:40 | disposition home or self-care (01) ==
LOC: ER 10:21
DX: R10.11 Right upper quadrant pain (principal); G89.29 Other chronic pain; R11.0 Nausea; R19.4 Change in bowel habit; R74.0 Nonspecific elevation of levels of transaminase and lactic acid dehydrogenase [LDH]; I10 Essential (primary) hypertension; Z88.8 Allergy status to other drugs, medicaments and biological substances
CPT/HCPCS: 99283; 96372; 36415; 83690; 80307 ×2; 85025; 80053; 81001; 74018; J1885

== ENCOUNTER 2019-05-03 01:08 | Emergency (ER) | payer OTHER ==
[2019-05-03] MEDS ORDERED: MORPHINE SULFATE 10 MG/ML INJ IV ONE (02:49)
[2019-05-03] MEDS ORDERED: ONDANSETRON HCL INJ/PF 4 MG/2 ML SDV IV ONE (02:49)
[2019-05-03] MEDS ORDERED: NORMAL SALINE 1000 ML 1,000 ML IV ONE (02:50)
--- NOTE | 2019-05-03 03:02 | ER Document Report ---
ED GI/ - General Chief Complaint: Epigastric Pain Stated Complaint: ABDOMINAL PAIN Time Seen by Provider: 05/03/19 02:24 Primary Care Provider: [facility] [Provider Group] - Follow up as needed Notes: Patient is a 48-year-old female that comes emergency department for chief complaint of upper abdominal pain. Pain is worst towards the middle and right of the abdomen. She states that she has been trying to get this figured out for some time now, she states she has had a negative MRI, negative ultrasound, and she is also had endoscopy in the past for esophageal dilatation of strictures x2. She has not had a recent endoscopy within the past 3 years. She states she is taking medications given her from the emergency department last month as prescribed. She states symptoms are worse when she is lying down. She does have some intermittent harder bowel movements, denies vomiting, denies black or bloody stools. She states she is medicated for hypertension, depression, takes a "fluid pill", takes tramadol for pain. TRAVEL OUTSIDE OF THE [place] IN LAST 30 DAYS: No - Related Data Allergies/Adverse Reactions: lisinopril Allergy (Verified 05/03/19 01:10) Past Medical History - General Information source: Patient - Social History Smoking Status: Never Smoker Frequency of alcohol use: None Drug Abuse: None Lives with: Family Family History: Reviewed & Not Pertinent Patient has suicidal ideation: No Patient has homicidal ideation: No - Past Medical History Cardiac Medical History: Reports: Hx Hypertension Neurological Medical History: Reports: Hx Cerebrovascular Accident - 2013, Hx Migraine Renal/ Medical History: Denies: Hx Peritoneal Dialysis Musculoskeletal Medical History: Reports Hx Arthritis, Reports Hx Fibromyalgia Psychiatric Medical History: Reports: Hx Anxiety, Hx Depression Past Surgical History: Reports: Hx Gynecologic Surgery, Other - Esophageal dilatation x2, most resent one in 2016 - Immunizations Immunizations up to date: No Hx Diphtheria, Pertussis, Tetanus Vaccination: No Review of Systems - Review of Systems Constitutional: No symptoms reported EENT: No symptoms reported Cardiovascular: No symptoms reported Respiratory: No symptoms reported Gastrointestinal: See HPI Genitourinary: No symptoms reported Female Genitourinary: No symptoms reported Musculoskeletal: No symptoms reported Skin: No symptoms reported Hematologic/Lymphatic: No symptoms reported Neurological/Psychological: No symptoms reported Physical Exam - Vital signs Vitals: Temp Pulse Resp BP Pulse Ox 98.3 F 107 H 20 140/92 H 97 08/07/19 01:24 05/03/19 01:24 05/03/19 01:24 05/03/19 01:24 05/03/19 01:24 - Notes Notes: GENERAL: Alert, interacts well. No acute distress. HEAD: Normocephalic, atraumatic. EYES: Pupils equal, round, and reactive to light. Extraocular movements intact. ENT: Oral mucosa moist, tongue midline. Oropharynx unremarkable. Airway patent. LUNGS: Clear to auscultation bilaterally, no wheezes, rales, or rhonchi. No respiratory distress. HEART: Regular rate and rhythm. No murmur ABDOMEN: There is mild tenderness in the upper abdomen generally, slightly more over the epigastric and right upper quadrant but still no guarding. No rigidity. No rebound tenderness. GENITOURINARY: Deferred EXTREMITIES: Moves all 4 extremities spontaneously. No edema, normal radial and dorsalis pedis pulses bilaterally. No cyanosis. BACK: no cervical, thoracic, lumbar midline tenderness. No saddle anesthesia, normal distal neurovascular exam. Moves all extremities in full range of motion. NEUROLOGICAL: Alert and oriented x3. Normal speech. Cranial nerves II through XII grossly intact. PSYCH: Normal affect, normal mood. SKIN: Warm, dry, normal turgor. No rashes or lesions noted. Course - Re-evaluation Re-evalutation: Patient has some upper abdominal pain but this is actually quite mild. No guarding. She does not appear to be in any distress. Vital signs unremarkable. CBC unremarkable. Chemistry shows LFTs that are in the 300s, however this is improved from prior. Bilirubin unremarkable, lipase unremarkable, urinalysis unremarkable. hCG is negative. Review of records shows that patient has recently had an upper abdominal ultrasound which is was normal, and an MRI of the abdomen which was normal. These are both within the past 2 weeks. X-ray performed here is nonspecific. Potassium is low at 2.7. Most likely this is from patient's hydrochlorothiazide that she takes only for lower extremity swelling and not for hypertension reportedly. Supplementing. - Vital Signs Vital signs: Temp Pulse Resp BP Pulse Ox 98.4 F 107 H 19 126/96 H 100 05/03/19 06:00 05/03/19 01:24 05/03/19 06:00 05/03/19 04:01 05/03/19 06:00 - Laboratory Result Diagrams: 05/03/19 03:11 05/03/19 03:11 Laboratory results interpreted by me: 05/03/19 05/03/19 05/03/19 03:11 03:11 04:23 RDW 15.5 H Potassium 2.7 L* Carbon Dioxide 32 H Est GFR (Non-Af Amer) 58 L Direct Bilirubin 0.7 H AST 332 H Urine Urobilinogen 4.0 H - EKG Interpretation by Me Additional EKG results interpreted by me: EKG shows sinus rhythm at a rate of 74, QTC of 449, no T wave inversions or ST segment changes in consecutive leads. Left axis deviation. Discharge - Discharge Clinical Impression: Upper abdominal pain, Hypokalemia Condition: Stable Disposition: HOME, SELF-CARE Additional Instructions: Because of your work-up, ongoing symptoms, recent evaluations, I recommend next a HIDA scan for possible gallbladder dyskinesis as the cause of your symptoms. Follow-up with primary care for this (see listed referral, call for appointment). Take HCTZ only as needed, increase potassium in your diet, have your potassium rechecked. Hopefully this improves the potassium problem. Come back if you are worse: vomiting, severe worsening pain, fever, muscle cramps, palpations, passing out, or any other concerning symptoms. Prescriptions: Promethazine HCl [Phenergan 25 mg Tablet] 25 mg PO Q6H PRN #20 tablet PRN Reason: Forms: Return to Work Referrals: [facility] [Provider Group] - Follow up as needed
[2019-05-03 03:18] LABS: ABSOLUTE BASOPHILS # (AUTO) 0.1 10^3/uL (0.0-0.2); ABSOLUTE EOSINOPHILS # (AUTO) 0.4 10^3/uL (0.0-0.6); ABSOLUTE LYMPHOCYTES (AUTO) 1.7 10^3/uL (0.5-4.7); ABSOLUTE MONOCYTES (AUTO) 0.6 10^3/uL (0.1-1.4); ABSOLUTE NEUT (AUTO) 5.2 10^3/uL (1.7-8.2); BASOPHILS % (AUTO) 1.1 % (0-2); EOSINOPHILS % (AUTO) 4.5 % (0-6); HEMATOCRIT 37.2 % (36.0-47.0); HEMOGLOBIN 12.3 g/dL (12.0-15.5); LYMPHOCYTES % (AUTO) 21.8 % (13-45); MEAN CORPUSCULAR HEMOGLOBIN 28.4 pg (27.0-33.4); MEAN CORPUSCULAR HGB CONC 33.1 g/dL (32.0-36.0); MEAN CORPUSCULAR VOLUME 86 fl (80-97); MONOCYTES % (AUTO) 7.1 % (3-13); PLATELET COUNT 302 10^3/uL (150-450); RED BLOOD COUNT 4.34 10^6/uL (3.72-5.28); RED CELL DISTRIBUTION WIDTH 15.5 % (11.5-14.0); SEGMENTED NEUTROPHILS % (AUTO) 65.5 % (42-78); TOTAL CELLS COUNTED % (AUTO) 100 %
[2019-05-03 03:36] LABS: ALBUMIN 4.5 g/dL (3.5-5.0); ALKALINE PHOSPHATASE 103 U/L (38-126); ANION GAP 9 (5-19); ASPARTATE AMINO TRANSFERASE 332 U/L (14-36); BILIRUBIN,DIRECT 0.7 mg/dL (0.0-0.4); BILIRUBIN,TOTAL 1.3 mg/dL (0.2-1.3); BLOOD UREA NITROGEN 11 mg/dL (7-20); CALCIUM 9.7 mg/dL (8.4-10.2); CARBON DIOXIDE 32 mmol/L (22-30); CHLORIDE 98 mmol/L (98-107); GLUCOSE 100 mg/dL (75-110); TOTAL PROTEIN 8.1 g/dL (6.3-8.2)
[2019-05-03 03:38] LABS: POTASSIUM 2.7 mmol/L (3.6-5.0)
[2019-05-03] MEDS ORDERED: POTASSIUM CHLORIDE 10 MEQ CAPSULE.ER PO ONE (03:51)
[2019-05-03] MEDS: POTASSI CL 20 MEQ/50 ML RIDER 20 MEQ/50 ML RTUPB IV SCH ×2 (04:19→06:23)
[2019-05-03 04:45] LABS: APPEARANCE,URINE CLEAR; BILIRUBIN,URINE NEGATIVE (NEGATIVE); COLOR,URINE YELLOW; GLUCOSE, URINE NEGATIVE (NEGATIVE); KETONES,URINE NEGATIVE (NEGATIVE); LEUKOCYTE ESTERASE,URINE NEGATIVE (NEGATIVE); NITRITE,URINE NEGATIVE (NEGATIVE); PROTEIN,URINE NEGATIVE (NEGATIVE)
[2019-05-03] MEDS ORDERED: OXYCODONE-ACETAMINOPHEN 5-325 MG TABLET PO ONE (06:00)
--- NOTE | 2019-05-03 06:35 | RADIOLOGY REPORT (SQ) ---
EXAM: X-ray acute abdomen series CLINICAL DATA: 48-year-old female with sharp abdominal pain TECHNICAL DATA: Three x-ray images of the chest and abdomen were performed including a PA radiograph of the chest as well as supine and upright views of the abdomen. This study was performed on 05/03/2019 at 5:26 AM. Comparison: Chest x-ray performed on 03/29/2019. FINDINGS: The lungs are well expanded. The cardiac silhouette is within normal limits. There is no focal consolidation, pleural effusion or pneumothorax. The costophrenic sulci are clear. The bowel gas pattern is nonspecific and nonobstructive. There is no evidence of free air or significant air-fluid levels. No pathologic abdominal calcifications are identified. No focal soft tissue abnormalities are seen. IMPRESSION: 1. No evidence of acute intrathoracic disease.. 2. Nonspecific nonobstructive bowel gas pattern.
--- NOTE | 2019-05-03 07:30 | EKG REPORT ---
SEVERITY:- ABNORMAL ECG - SINUS RHYTHM LEFT VENTRICULAR HYPERTROPHY NONSPECIFIC T ABNORMALITIES, INFERIOR LEADS : Confirmed by: Shawn Pastor MD 03-May-2019 07:29:27
[2019-05-03 11:11] LABS: ANION GAP 8 (5-19); BLOOD UREA NITROGEN 9 mg/dL (7-20); CALCIUM 9.4 mg/dL (8.4-10.2); CARBON DIOXIDE 30 mmol/L (22-30); CHLORIDE 101 mmol/L (98-107); GLUCOSE 87 mg/dL (75-110)
[2019-05-03 12:31] VITALS: BP 132/98
== END 2019-05-03 12:31 | disposition home or self-care (01) ==
LOC: ER 01:08
DX: R10.13 Epigastric pain (principal); I10 Essential (primary) hypertension; E87.6 Hypokalemia
CPT/HCPCS: 93005; 36415; 83690; 83735; 85025; 81025; 80053; 81001; 74022; 93010; J2270; J2405; J3480; J7030; 96361; 96365; 96366; 96375; 99284

== ENCOUNTER → 2019-05-18 | Outpatient (CLI) | payer OTHER ==
--- NOTE | 2019-05-18 10:10 | RADIOLOGY REPORT (SQ) ---
EXAM DESCRIPTION: NM HIDA SCAN COMPLETED DATE/TIME: 05/18/2019 9:19 am REASON FOR STUDY: CHRONIC ABD PAIN (R10.9) R10.9 UNSPECIFIED ABDOMINAL PAIN COMPARISON: Prior MRI. Prior ultrasound. RADIONUCLIDE AND DOSE: DOSAGE RADIONUCLIDE: 5.5 millicuries Tc99m Mebrofenin. DOSAGE MORPHINE: Not required. The route of agent administration: Intravenous TECHNIQUE: Serial imaging right upper quadrant up to 60 minutes following injection of radionuclide. Patient imaged AP and Right Lateral. LIMITATIONS: None. FINDINGS: LIVER: Normal visualization without areas of photopenia. INTRA-HEPATIC BILE DUCTS: Temporal visualization normal. No dilatation. COMMON BILE DUCT: Normal without dilatation or delayed visualization. GALLBLADDER: Normal visualization. OTHER: No other significant finding. IMPRESSION: NORMAL STUDY WITHOUT CYSTIC OR COMMON DUCT OBSTRUCTION. TECHNICAL DOCUMENTATION: JOB ID: [id number] [employer]- All Rights Reserved Reading location - IP/workstation name: [email or web address]
== END ==
LOC: RAD 07:35
PROVIDERS: ATTEND Family Medicine
DX: R10.9 Unspecified abdominal pain (principal)
CPT/HCPCS: 78226; A9537; Q9969